=== PATIENT | female | born 1985 | race Caucasian/White ===

== ENCOUNTER 2024-02-08 10:26 | Emergency (ER) | payer OTHER, SELFPAY ==
[2024-02-08] VITALS (7 sets, daily range): BP systolic 100–137; BP diastolic 75–95; PULSE 103–127; BMI 21.7
[2024-02-08 11:09] LABS: % Basophils 0.8 % (0-2); % Eosinophils 3.9 % (0-6); % Immature Granulocytes 0.1 % (0-0.5); % Lymphocytes 21.8 % (20.5-51.1); % Monocytes 5.3 % (1.7-9.3); % Neutrophils 68.1 % (42.2-75.2); Absolute Basophils 0.1 10^3/uL (0-0.2); Absolute Eosinophils 0.3 10^3/uL (0-0.7); Absolute Lymphocytes 1.7 10^3/uL (1.2-3.4); Absolute Monocytes 0.4 10^3/uL (0.1-0.6); Absolute Neutrophils 5.2 10^3/uL (1.4-6.5); Hematocrit 41.4 % (37.0-47.0); Hemoglobin 13.9 g/dL (12.0-16.0); INR 1.07; Mean Corp Hgb Conc. 33.6 g/dL (33.0-37.0); Mean Corpuscular Hgb 31.2 pg (27.0-31.0); Mean Platelet Volume 9.2 fL (7.4-10.4); Nucleated Red Blood Cells % 0 %; PT 13.8 Sec (11.4-14.6); Platelet Count 467 10^3/uL (130-400); Red Blood Cell Count 4.45 10^6/uL (4.20-5.40); Red Cell Dist. Width 12.8 % (11.5-14.5); White Blood Cell Count 7.7 10^3/uL (4.8-10.8)
[2024-02-08 11:21] LABS: Blood Urea Nitrogen 8 mg/dl (7-17); Calcium 9.9 mg/dl (8.4-10.2); Carbon Dioxide 29 mmol/L (22-30); Chloride 104 mmol/L (98-107); Estimated Creatinine Clearance > 125 ml/min; Glucose 105 mg/dl (70-99); Sodium 139 mmol/L (135-145); eGFR > 60.00
--- NOTE | 2024-02-08 11:26 | ED.GENMED ---
History of Present Illness
General
Chief Complaint: Heart Rate Problem
Source: patient
Exam Limitations: none
Time Seen by Provider: 02/08/24 10:58
Travel History
Have you had any contact with someone who has COVID-19?: No
Do you have any symptoms of coronavirus? Fever > 100 degrees, chills, cough, shortness of breath, sore throat, loss of taste or smell, muscle aches, or headache?: No
History of Present Illness
History of Present Illness:
38-year-old female presents complaining of persistently elevated rapid heart rate. She has a remote history of SVT and was on beta-blockers for some time but stopped those about a couple years ago. She denies chest pain. She does note occasional
shortness of breath. Today she was standing up gaseous and feeling of gas and she believes she passed out and fell into her car. She is on Suboxone. No recent alcohol use. Denies recent IV drug abuse. She was seen at another hospital 2 days ago
and thought to have anxiety and given Xanax and was discharged.
Past History
Past History
ED Past Medical History: Arrthythmia (SVT s/p ablation) and Other (RSD)
ED Past Surgical History: None and Orthopedic
Social History
Tobacco: Smoker
Personal: Single
Living: with family
Employment: Employed
Phy Exam
Physical Exam
Physical Exam:
General: Well-appearing female no acute respiratory distress
HEENT: Normocephalic atraumatic
Heart: Tachycardic but regular
Lungs: Clear no wheeze
Extremities: No cyanosis or edema
Course
Orders/Labs/Results
Orders:
Orders
02/08/24 10:33
Electrocardiogram (*1) Urgent
Reason for Study: Tachycardia
EKG- Treatment ONCE
02/08/24 10:43
Basic Metabolic Panel Urgent
Complete Blood Count/With Diff Urgent
D-Dimer Urgent
Comment: ADD ON
PT/INR [Prothrombin Time] Urgent
Troponin I Urgent
02/08/24 11:18
Orthostatic VS- Treatment ONCE
0.9% Sodium Chloride 1000 ml [Nss] 1,000 ml IV BOLUS
02/08/24 11:33
Add On- LAB Urgent
Tests Added?: d-dimer
02/08/24 12:09
CR Chest - 2 Views Urgent
Comment:
Reason For Exam: sob
Abnormal Lab Results
02/08/24
10:43
MCH 31.2 H pg
(27.0-31.0)
Plt Count 467 H 10^3/uL
(130-400)
Creatinine 0.5 L mg/dL
(0.6-1.0)
Glucose 105 H mg/dl
(70-99)
02/08/24 10:43
02/08/24 10:43
Vital Signs
Initial and Last Documented VS:
Initial Vital Signs
Temp Pulse Resp BP Pulse Ox
98.5 F 137 18 137/79 99
02/08/24 10:29 02/08/24 10:29 02/08/24 10:29 02/08/24 10:29 02/08/24 10:29
Last Documented Vital Signs
Temp Pulse Resp BP Pulse Ox
98.5 F 99 7 100/86 100
02/08/24 10:29 02/08/24 12:45 02/08/24 12:45 02/08/24 12:35 02/08/24 12:45
MDM/Problems Addressed
Differential Diagnosis Includes:
Tachycardia shortness of breath. Consider dehydration versus electrolyte abnormality versus withdrawal versus arrhythmia
D-dimer pending. Orthostatics pending will check
Labs for anemia. Fluids ordered.
*Critical Care Note
Total Time (30-74mins, 75-104mins- exclusive of procedures): Not Applicable
Update Note
Update Note:
D-dimer and troponin undetectable. Patient given fluids and heart rate has improved now in the 90s and is sinus. Patient complained about rectal bleeding that she has been noticing intermittently upon my reexamination. Female people greeter was in the
room and rectal exam was performed shows no obvious bleeding hemorrhoid or fissure. Stool is brown and heme-negative. Hemoglobin is 13.9. Vital signs of normalized. Question possible dehydration versus arrhythmia. Recommend follow-up with
cardiology and GI. Stable for discharge
ED Attending Note
-
Portions of this chart may have been created with voice recognition software.� Occasional wrong word or��sound alike� substitutions may have occurred due to the inherent limitations of voice recognition software.
Discharge Plan
Departure
Patient Disposition: Home (Routine Discharge)
Date of Disposition: 02/08/24
Time of Disposition: 14:05
Patient with high blood pressure during this ER visit?: No
Discharge Problem:
Palpitations
Instructions: Palpitations (DC)
Prescriptions:
No Action
venlafaxine 75 MG capsule,extended release 24hr
75 mg PO DAILY
tizanidine 2 MG tablet
2 mg PO PRN PRN (Reason: muscle spasms)
alprazolam 1 MG tablet
1 mg PO TID
dextroamphetamine-amphetamine [Adderall XR] 15 MG capsule,extended release 24hr
15 mg PO TID
acebutolol 200 MG capsule
200 mg PO BID
Referrals:
Miladis Velazquez MD [Active] -
Cristóbal Olivas MD [Active] -
NONE,* [Family Provider] -
Activity Restrictions/Additional Instructions:
Stay hydrated. Consider using Prilosec 40 mg [id number]. Return for worsening symptoms otherwise follow-up with GI and cardiology
Interventions
Interventions:
*Risk Screen - Suicide Last Done: 02/08/24 10:31
*General Assessment Last Done: 02/08/24 10:31
*Neglect/Abuse Screening Last Done: 02/08/24 10:31
*ED COVID-19 Vaccine History Last Done: 02/08/24 10:41
ED- Cardiac Assessment Last Done: 02/08/24 10:41
ED- Pulmonary Assessment Last Done: 02/08/24 10:41
Discharge Date and Time
Print Language: TAJIK
[2024-02-08 11:29] LABS: Troponin I < 0.012 ng/ml
[2024-02-08] MEDS: NSS 1000 IV (11:36)
[2024-02-08 11:58] LABS: D-Dimer < 0.27 ug/mlFEU (0.00-0.50)
== END 2024-02-08 15:31 | disposition home or self-care (01) ==
LOC: EMR 10:26
PROVIDERS: EMERGENCY PHYSICIAN Emergency Medicine
DX: R00.2 Palpitations (principal); F17.200 Nicotine dependence, unspecified, uncomplicated
CPT/HCPCS: 99285; 96360; 71046; 80048; 84484; 85025; 85379; 85610; 93005

== ENCOUNTER 2024-02-11 23:45 | Inpatient (IN) | payer OTHER, SELFPAY ==
[2024-02-11] VITALS (14 sets, daily range): BP systolic 84–103; BP diastolic 46–72
[2024-02-11 16:56] LABS: % Basophils 0.3 % (0-2); % Eosinophils 0.1 % (0-6); % Immature Granulocytes 0.6 % (0-0.5); % Lymphocytes 4.4 % (20.5-51.1); % Monocytes 3.9 % (1.7-9.3); % Neutrophils 90.7 % (42.2-75.2); Absolute Basophils 0.1 10^3/uL (0-0.2); Absolute Immature Granulocytes 0.1 10^3/uL (0-0.05); Absolute Lymphocytes 0.8 10^3/uL (1.2-3.4); Absolute Monocytes 0.7 10^3/uL (0.1-0.6); Absolute Neutrophils 16.3 10^3/uL (1.4-6.5); Hematocrit 41.3 % (37.0-47.0); Hemoglobin 14.1 g/dL (12.0-16.0); Mean Corp Hgb Conc. 34.1 g/dL (33.0-37.0); Mean Corpuscular Hgb 31.5 pg (27.0-31.0); Mean Corpuscular Volume 92.4 fL (81.0-99.0); Mean Platelet Volume 9.2 fL (7.4-10.4); Nucleated Red Blood Cells % 0 %; Platelet Count 468 10^3/uL (130-400); Red Blood Cell Count 4.47 10^6/uL (4.20-5.40)
[2024-02-11] MEDS: ZOFRAN 4 MG IV (17:09)
[2024-02-11 17:11] LABS: Amphetamines Positive (Negative)
[2024-02-11 17:12] LABS: Barbiturates Negative (Negative); Benzodiazepines Positive (Negative); Buprenorphine Positive (Negative); Cocaine Negative (Negative); Marijuana Positive (Negative); Methadone Negative (Negative); Methamphetamines Negative (Negative); Opiates Negative (Negative); Phencyclidine Negative (Negative); Tricyclic Antidepressants Negative (Negative)
[2024-02-11 17:14] LABS: ALT (SGPT) 18 U/L (0-35); AST (SGOT) 74 U/L (14-36); Albumin 4.5 g/dl (3.5-5.0); Alkaline Phosphatase 72 U/L (38-126); Blood Urea Nitrogen 15 mg/dl (7-17); Calcium 10.4 mg/dl (8.4-10.2); Carbon Dioxide 27 mmol/L (22-30); Chloride 100 mmol/L (98-107); Glucose 121 mg/dl (70-99); Potassium 4.2 mmol/L (3.5-5.1); Sodium 138 mmol/L (135-145); Total Bilirubin 0.5 mg/dl (0.2-1.3); Total Protein 7.4 g/dl (6.3-8.2); eGFR > 60.00
[2024-02-11 17:17] LABS: HCG, Serum Qualitative Screen Negative
[2024-02-11 17:36] LABS: Fentanyl, Urine Positive (Negative)
--- NOTE | 2024-02-11 17:41 | ED.GENMED ---
Addendum entered and electronically signed by Reid Rivas, 02/11/24 21:20:
Patient seen and evaluated by me. Patient with suicide attempt fentanyl and benzodiazepine overdose. Continued mild hypotension. Patient getting normal saline. Will admit for further monitoring and evaluation.
Original Note:
History of Present Illness
General
Chief Complaint: Overdose Intentional
Source: patient
Time Seen by Provider: 02/11/24 16:06
Travel History
Have you had any contact with someone who has COVID-19?: No
Do you have any symptoms of coronavirus? Fever > 100 degrees, chills, cough, shortness of breath, sore throat, loss of taste or smell, muscle aches, or headache?: No
History of Present Illness
History of Present Illness:
38-year-old female with past medical history of CRPS, ADHD, anxiety/depression presenting to the emergency department with family after patient was reportedly missing for around 24 hours, found by police in the parking lot a [employer]'s after patient
had reportedly expressed suicidal ideation and had taken 4 bags of fentanyl and a total of 5 mg of Xanax at some point between 10 AM and arrival to the ER. Family brought patient to the emergency. Mother states that patient had expressed suicidal
ideations over the last couple of days stating that if it were not for the patient's children or her mother patient would have already killed herself by now. Patient endorses feeling brain fog and slow to respond to questions and feels as if she is
just not herself. Family notes that patient seems to have a hard time recollecting any timeline from yesterday until today. Patient was recently in the ER here and in [place] for episodes of SVT over the last week as well.
Past History
Past History
ED Past Medical History: Arrthythmia (SVT s/p ablation), Psychiatric and Other (RSD)
ED Past Surgical History: None and Orthopedic
Social History
Tobacco: Smoker
Alcohol: None
Drug: Narcotics
Personal: Single
Living: with family
Employment: Employed
Review of Systems
Review of Systems
All Other Systems: ROS reviewed and negative except as documented in HPI and ROS
Phy Exam
Physical Exam
Physical Exam:
GENERAL: Alert , in no apparent distress, slow to respond to questions, appears intoxicated
EYE: conjunctiva clear, pupils 2 mm bilateral
NECK: Supple
ENT: o/p clr, mmm.
CARDIAC: Regular rate and rhythm
LUNGS: Clear breath sounds bilaterally, no acute respiratory distress, no wheezes/rales/rhonchi
NEUROLOGICAL: Alert and oriented
SKIN: Warm and dry, skin intact.
MUSCULOSKELETAL: well perfused.
PSYCH: Normal and appropriate interaction.
Scores
Heart Failure Risk
Heart Failure Risk Score: Not Applicable
Heart Score for Chest Pain Patients
STEMI patient?: Not applicable
Withdrawal Assessment of Alcohol
Withdrawal Assessment Completed?: Not applicable
Course
Orders/Labs/Results
Orders:
Orders
02/11/24 15:43
Electrocardiogram (*1) Urgent
Reason for Study: Other
Other Reason for Exam: fentanyl ingestion
EKG- Treatment ONCE
Test Result ONCE
02/11/24 15:44
Crisis Consult Urgent
Reason for Consult: positive suicide attempt/ideation
02/11/24 16:30
Ondansetron Injectable [Zofran] 4 mg .ROUTE .[facility]
02/11/24 16:38
CT Head W/o Iv Contrast Urgent
Comment:
Reason For Exam: AMS, substance abuse, slow speech/unsteady gait
02/11/24 16:44
Acetaminophen Urgent
Alcohol Urgent
CMP [Comprehensive Metabolic Panel] Urgent
Complete Blood Count/With Diff Urgent
Fentanyl, Urine Urgent
HCG, Serum Qualitative Screen Urgent
Salicylate Urgent
Urine Drug Abuse Screen Urgent
Date Specimen was Collected: 02/11/24
Time Specimen was Collected: 15:44
02/11/24 17:09
Ondansetron Injectable [Zofran] 4 mg IV NOW STA
02/11/24 19:23
0.9% Sodium Chloride 1000 ml [Nss] 1,000 ml IV BOLUS
Abnormal Lab Results
02/11/24
16:44
WBC 18.0 H 10^3/uL
(4.8-10.8)
MCH 31.5 H pg
(27.0-31.0)
Plt Count 468 H 10^3/uL
(130-400)
Abs Immat Gran (auto) 0.1 H 10^3/uL
(0-0.05)
Absolute Neuts (auto) 16.3 H 10^3/uL
(1.4-6.5)
Absolute Lymphs (auto) 0.8 L 10^3/uL
(1.2-3.4)
Absolute Monos (auto) 0.7 H 10^3/uL
(0.1-0.6)
Immature Gran % 0.6 H %
(0-0.5)
Neutrophils % 90.7 H %
(42.2-75.2)
Lymphocytes % 4.4 L %
(20.5-51.1)
Glucose 121 H mg/dl
(70-99)
Calcium 10.4 H mg/dl
(8.4-10.2)
AST 74 H U/L
(14-36)
Salicylates < 1.0 L mg/dl
(2.0-20.0)
Ur Buprenorphine Positive H
(Negative)
Urine Fentanyl Screen Positive H
(Negative)
Acetaminophen < 10 L ug/ml
(10-30)
Ur Amphetamines Screen Positive H
(Negative)
U Benzodiazepines Scrn Positive H
(Negative)
U Marijuana (THC) Screen Positive H
(Negative)
02/11/24 16:44
02/11/24 16:44
Vital Signs
Initial and Last Documented VS:
Initial Vital Signs
Temp Pulse Resp BP Pulse Ox
98.7 F 74 16 99/64 100
02/11/24 15:25 02/11/24 15:25 02/11/24 15:25 02/11/24 15:25 02/11/24 15:25
Last Documented Vital Signs
Temp Pulse Resp BP Pulse Ox
98.7 F 80 15 95/57 97
02/11/24 15:25 02/11/24 19:15 02/11/24 19:15 02/11/24 19:14 02/11/24 19:15
Final Tester consulted with Physician
Final Tester consulted with physician?: Yes
Name of Physician Consulted: Rob
MDM/Problems Addressed
Differential Diagnosis Includes:
Substance abuse, decreased levels of alertness secondary to opioid and benzodiazepine abuse, rhabdomyolysis, electrolyte disturbance, less concern for infectious etiology
MDM/Problems Addressed:
38-year-old female presenting to the emergency department for evaluation of suicidal ideation with plan and intent. Patient found by police in [employer]'s parking lot after reportedly ingesting fentanyl and Xanax. Family believes the ingestion
occurred at some point yesterday. Patient states she did not take anything today. She states only other medication that she potentially took was Suboxone but states she does not believe to have taken this. Patient does appear intoxicated
presently but is awake alert and oriented x 3. She has no physical complaints other than feeling brain fog and having a difficult time concentrating. Patient did have 1 episode of nonbloody nonbilious emesis during our conversation and she was
treated with 4 mg of Zofran. Crisis to evaluate with anticipation that patient will be disposition to inpatient psych.
Chronic conditions affecting care: Psychiatric illness
Acute Exacerbation and/or Progression of Chronic Illness: Psychiatric illness
*Radiology
Radiology exam reviewed: radiology read reviewed
*Pulse Oximetry
Patient hypoxic: no
*EKG
Interpreted by ED Provider?: Yes
Comparison EKG: no changes
Heart Rate: 67
Rate: normal
Rhythm: sinus
[place]: normal axis
Ischemia: no ischemia
*Oim Consultant Interpretation
Rate: normal
Rhythm: sinus
*Critical Care Note
Total Time (30-74mins, 75-104mins- exclusive of procedures): Not Applicable
Patient Management
Escalation/DeEscalation of care consider admission/obs:
Patient seen by crisis. She will ultimately be placed in inpatient psych facility. Continuing to monitor in the ER. CT without any acute findings and remaining toxicology work up is unremarkable
ED Attending Note
-
Portions of this chart may have been created with voice recognition software.� Occasional wrong word or��sound alike� substitutions may have occurred due to the inherent limitations of voice recognition software.
Discharge Plan
Departure
Patient Disposition: Psych Facility
Date of Disposition: 02/11/24
Time of Disposition: 17:41
Discharge Problem:
Suicidal ideation, Substance abuse
Prescriptions:
No Action
multivitamin Tablet
1 tab PO DAILY
cyanocobalamin (vitamin B-12) [Vitamin B-12] 1,000 mcg Tablet
1,000 mcg PO DAILY
buprenorphine-naloxone 8-2 mg film
1 film sublingual DAILY
Patient Comments:
02/11/2024: last filled 02/09/24, 60 film for 30 days from [id number]
Referrals:
NONE,* [Family Provider] -
Interventions
Interventions:
*Risk Screen - Suicide Last Done: 02/11/24 15:25
*General Assessment Last Done: 02/11/24 18:57
*Neglect/Abuse Screening Last Done: 02/11/24 19:00
*ED COVID-19 Vaccine History Last Done: 02/11/24 15:25
ED-Psychological Assessment Last Done: 02/11/24 16:12
Discharge Date and Time
Print Language: OCCITAN
[2024-02-11 18:04] LABS: Acetaminophen < 10 ug/ml (10-30); Salicylate < 1.0 mg/dl (2.0-20.0)
[2024-02-11 18:06] LABS: Alcohol None Detected
[2024-02-11] MEDS: NSS 1000 IV ×2 (19:30→21:35)
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
[2024-02-12] VITALS (9 sets, daily range): BP systolic 91–118; BP diastolic 55–79; PULSE 77–88; BMI 21.3; BMI 21.4
--- NOTE | 2024-02-12 00:40 | PTCARENOTE ---
Pt admitted to room 2127 from ED on 1:1 observation, aaox3. COWS assessment initiated. Pt oriented to room and call light.
[2024-02-12] MEDS: NSS 1000 IV (01:25)
[2024-02-12] MEDS: TYLENOL 650 MG PO ×2 (01:36→20:43)
[2024-02-12 06:31] LABS: Hematocrit 31.6 % (37.0-47.0); Hemoglobin 10.4 g/dL (12.0-16.0); Mean Corp Hgb Conc. 32.9 g/dL (33.0-37.0); Mean Corpuscular Hgb 31.2 pg (27.0-31.0); Mean Corpuscular Volume 94.9 fL (81.0-99.0); Mean Platelet Volume 9.7 fL (7.4-10.4); Platelet Count 343 10^3/uL (130-400); Red Blood Cell Count 3.33 10^6/uL (4.20-5.40); Red Cell Dist. Width 12.9 % (11.5-14.5); White Blood Cell Count 9.2 10^3/uL (4.8-10.8)
[2024-02-12 07:19] LABS: Blood Urea Nitrogen 7 mg/dl (7-17); Calcium 8.4 mg/dl (8.4-10.2); Carbon Dioxide 28 mmol/L (22-30); Chloride 105 mmol/L (98-107); Estimated Creatinine Clearance > 125 ml/min; Glucose 97 mg/dl (70-99); Potassium 3.8 mmol/L (3.5-5.1); Sodium 136 mmol/L (135-145); eGFR > 60.00
[2024-02-12 07:36] LABS: Creatine Phosphokinase 2329 U/L (30-135)
[2024-02-12] MEDS: NSS IV (09:14)
--- NOTE | 2024-02-12 11:08 | CM ---
Addendum entered by Russel Erazo 02/12/24 15:31:
Pharmacy is [facility] in [place]. She does not have a PCP at this time. The last PCP was at [facility].
Original Note:
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 Psychiatry has evaluated patient and feels she would benefit from inpatient psychiatric admission
or [facility] and substance abuse inpatient treatment. Possibly [facility]. Patient is considering options. Discharge Plan of Care TBD.
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
--- NOTE | 2024-02-12 12:55 | PTCARENOTE ---
Psych came and evaluated this pt, pt calm at this time, D/C'd 1:1 observation. No new orders at this time.
--- NOTE | 2024-02-12 13:45 | PTCARENOTE ---
This RN spoke with the pt who is looking to 'take a piece of her medication to microdose' because she is afraid of going into withdrawal. MD has made pt aware that we do not do that here, offered lower dose of medication, pt still hesitant and want
to think on it, may try to leave AMA to microdose at home per pt. and psych made aware, no new orders at this time.
--- NOTE | 2024-02-12 13:50 | W.PN.HOSP.TC ---
Today's Communication/Plan
-
see note
Assessment / Plan
Assessment / Plan
Intentional Overdose
Suicidal Ideation
Major Depression
- Admit for further evaluation and treatment.
- Overdose took place at 9AM on 02/10/24.
- Stop further IVF
- Monitor on telemetry overnight.
- Psychiatry evaluated and patient will require an inpatient admission
- 1:1 removed by psych.
Chronic BZD Dependence
- Patient notes that she has been on chronic Xanax x many years.
- PDMP queried and most recent Rx was from 04/2023 - though it did seem to be fairly regular prior to that.
- Low dose alprazolam PRN for now and follow for any evidence of withdrawal, etc.
Chronic Opioid Use Disorder
Complex Regional Pain Syndrome
- Patient apparently takes Suboxone 16mg/d. Patient hesitant about taking buprenorphine 8 mg daily dose ordered in hospital. Concerned about precipitating opioid withdrawal.
- Repeated discussion although patient adamant about not taking therapy.
Leukocytosis
- Unclear etiology. ? Reactive due to overdose, etc.
- Follow for any fevers, focal symptoms, etc.
- Follow for improvement.
DVT Prophylaxis: SCDs
Code Status: Full
RN informed that patient may leave AMA and want to try microdosing buprenorphine at home. Per psychiatry patient is not allowed to leave AMA and will need to be 302ed if intent to do so
Anticipated Discharge: 24 - 48 hours
Subjective/Interval History
-
Date of Service: February 12, 2024
Patient anxious about being provided Subutex concern about withdrawal
Complaining of some headache
No nausea vomiting/chest pain
Objective Data
-
Labs:
Laboratory Results
02/12/24
05:54
WBC 9.2
Hgb 10.4 L D
Hct 31.6 L
Plt Count 343 D
Sodium 136
Potassium 3.8
Chloride 105
Carbon Dioxide 28
BUN 7
Creatinine 0.5 L
Glucose 97
Calcium 8.4 D
Vital Signs:
Vital Signs
Temp Pulse Resp BP Pulse Ox
98.1 F 78 14 105/64 98
02/12/24 11:05 02/12/24 11:05 02/12/24 11:05 02/12/24 11:05 02/12/24 11:42
I&O
02/11/24 02/12/24 02/13/24
06:59 06:59 06:59
Intake Total 870 / 870
Balance 870 / 870
Review of Systems
-
Respiratory: Reports No Symptoms
Cardiac: Reports No Symptoms
Abdomen/GI: Reports No Symptoms
Physical Exam
-
HEENT: Negative Oxygen
Respiratory: Clear to Auscultation
Cardiac: Regular Rhythm and S1/S2; Negative Murmur or Rub
GI: Soft, Nontender, Nondistended and Normal Bowel Sounds
Musculoskeletal: No Edema
Neuro: Awake, Alert, Oriented, No Motor Deficits and Nonfocal/Grossly Intact
Psych: Calm
[2024-02-13 03:44] VITALS: BP 117/72
[2024-02-13] MEDS: XANAX 0.25 MG PO (04:01)
[2024-02-13 06:11] LABS: Hematocrit 32.5 % (37.0-47.0); Hemoglobin 11.2 g/dL (12.0-16.0); Mean Corp Hgb Conc. 34.5 g/dL (33.0-37.0); Mean Corpuscular Hgb 31.5 pg (27.0-31.0); Mean Corpuscular Volume 91.5 fL (81.0-99.0); Mean Platelet Volume 9.8 fL (7.4-10.4); Platelet Count 376 10^3/uL (130-400); Red Blood Cell Count 3.55 10^6/uL (4.20-5.40); Red Cell Dist. Width 12.8 % (11.5-14.5); White Blood Cell Count 6.7 10^3/uL (4.8-10.8)
[2024-02-13 06:36] LABS: ALT (SGPT) 16 U/L (0-35); AST (SGOT) 40 U/L (14-36); Albumin 2.8 g/dl (3.5-5.0); Alkaline Phosphatase 50 U/L (38-126); Blood Urea Nitrogen 4 mg/dl (7-17); Calcium 8.8 mg/dl (8.4-10.2); Carbon Dioxide 27 mmol/L (22-30); Chloride 107 mmol/L (98-107); Estimated Creatinine Clearance > 125 ml/min; Glucose 84 mg/dl (70-99); Potassium 3.8 mmol/L (3.5-5.1); Sodium 139 mmol/L (135-145); Total Bilirubin 0.3 mg/dl (0.2-1.3); Total Protein 5.2 g/dl (6.3-8.2); eGFR > 60.00
[2024-02-13 07:10] VITALS: BP 108/70
--- NOTE | 2024-02-13 09:05 | W.PN.HOSP.TC ---
Today's Communication/Plan
-
laxatives ordered
willing to take subutex 8mg/d
await psych f/u today
Assessment / Plan
Assessment / Plan
Intentional Overdose
Suicidal Ideation
Major Depression
- Overdose took place at 9AM on 02/10/24.
- Stop further IVF
- 1:1 removed by psych.
- Psych recommendation for inpatient psych admission
Chronic BZD Dependence
- Patient notes that she has been on chronic Xanax x many years.
- PDMP queried and most recent Rx was from 04/2023 - though it did seem to be fairly regular prior to that.
- Low dose alprazolam PRN for now and follow for any evidence of withdrawal, etc.
Chronic Opioid Use Disorder
Complex Regional Pain Syndrome
- Patient apparently takes Suboxone 16mg/d.
- Patient was hesitant about taking buprenorphine 8 mg daily dose ordered in hospital. Concerned about precipitating opioid withdrawal.
- Today patient in agreement and willing to start subutex 8mg/d dose.
Leukocytosis - resolved
- Unclear etiology. ? Reactive due to overdose, etc.
- Follow for any fevers, focal symptoms, etc.
- Follow for improvement.
Scalp swelling
headache
- unsure how patient got it
- no ecchymosis on exam and not discernable on exam
- monitor
Constipation
- laxatives ordered
DVT Prophylaxis: SCDs
Code Status: Full
Anticipated Discharge: Within 24 hours
Subjective/Interval History
-
Date of Service: February 13, 2024
feeling well overnight
some headache that improved with tylenol
no nausea/vomiting
feels constipated
Objective Data
-
Labs:
Laboratory Results
02/13/24
05:18
WBC 6.7
Hgb 11.2 L
Hct 32.5 L
Plt Count 376
Sodium 139
Potassium 3.8
Chloride 107
Carbon Dioxide 27
BUN 4 L
Creatinine 0.5 L
Glucose 84
Calcium 8.8
Total Bilirubin 0.3
AST 40 H
ALT 16
Alkaline Phosphatase 50
Vital Signs:
Vital Signs
Temp Pulse Resp BP Pulse Ox
97.9 F 86 16 108/70 95
02/13/24 07:10 02/13/24 07:10 02/13/24 07:10 02/13/24 07:10 02/13/24 07:10
I&O
02/12/24 02/13/24 02/14/24
06:59 06:59 06:59
Intake Total 870 / 870
Balance 870 / 870
Review of Systems
-
Respiratory: Reports No Symptoms
Cardiac: Reports No Symptoms
Abdomen/GI: Reports Constipated
Physical Exam
-
General: No Apparent Distress; Negative Respiratory Distress
HEENT: Negative Oxygen
Neuro: Awake, Alert, Oriented and No Motor Deficits
Psych: Calm
[2024-02-13] MEDS: MIRALAX 17 GRAMS PO (09:39)
[2024-02-13] MEDS: DULCOLAX 10 MG PO (09:39)
[2024-02-13] MEDS: SUBUTEX 8 MG SL (09:40)
--- NOTE | 2024-02-13 10:56 | W.PN.UPDATE ---
Update Note
Progress Note Update
Patient is quite friendly and cooperative. She still reports she is quite depressed particularly if opiates did not cause permanent damage on ocean transportation intermediary basis to her brain. She is also unhappy with her job but finds it difficult to find another line
of work and reports general anhedonia. She denies active suicidal thoughts but reports passive ones.
Discussed treatment of depression; she is interested in trying Wellbutrin again as it helped in the past; I feel psychotherapy is also essential.
Will try Wellbutrin XL 150 od.
Supportive intervention given.
[2024-02-13 11:05] VITALS: BP 111/72; BP 119/79; BP 119/81; PULSE 80; PULSE 83; PULSE 90
[2024-02-13] MEDS: WELLBUTRIN XL (24 hour extended release) 150 MG PO (11:30)
[2024-02-13 15:10] VITALS: BP 111/75
[2024-02-13 19:27] VITALS: BP 112/68
[2024-02-13] MEDS: MELATONIN 5 MG PO (21:11)
[2024-02-13 23:22] VITALS: BP 105/63
[2024-02-14 03:22] VITALS: BP 128/68
[2024-02-14 06:20] LABS: Hematocrit 34.5 % (37.0-47.0); Hemoglobin 12.3 g/dL (12.0-16.0); Mean Corp Hgb Conc. 35.7 g/dL (33.0-37.0); Mean Corpuscular Hgb 31.7 pg (27.0-31.0); Mean Corpuscular Volume 88.9 fL (81.0-99.0); Mean Platelet Volume 9.5 fL (7.4-10.4); Platelet Count 437 10^3/uL (130-400); Red Blood Cell Count 3.88 10^6/uL (4.20-5.40); Red Cell Dist. Width 12.8 % (11.5-14.5); White Blood Cell Count 7.3 10^3/uL (4.8-10.8)
[2024-02-14 06:41] LABS: ALT (SGPT) 14 U/L (0-35); AST (SGOT) 34 U/L (14-36); Albumin 3.1 g/dl (3.5-5.0); Alkaline Phosphatase 59 U/L (38-126); Blood Urea Nitrogen 7 mg/dl (7-17); Calcium 9.3 mg/dl (8.4-10.2); Carbon Dioxide 28 mmol/L (22-30); Chloride 106 mmol/L (98-107); Estimated Creatinine Clearance > 125 ml/min; Glucose 89 mg/dl (70-99); Potassium 3.9 mmol/L (3.5-5.1); Sodium 139 mmol/L (135-145); Total Bilirubin 0.4 mg/dl (0.2-1.3); Total Protein 5.6 g/dl (6.3-8.2); eGFR > 60.00
[2024-02-14 07:05] VITALS: BP 111/75
[2024-02-14] MEDS: SUBUTEX 8 MG SL (08:40)
[2024-02-14] MEDS: XANAX 0.25 MG PO (08:41)
[2024-02-14] MEDS: MIRALAX PO (08:50)
--- NOTE | 2024-02-14 08:59 | W.PN.HOSP.TC ---
Today's Communication/Plan
-
awaiting inpatient psych placement
continue current medication
Assessment / Plan
Assessment / Plan
Intentional Overdose
Suicidal Ideation
Major Depression
- Overdose took place at 9AM on 02/10/24.
- Stop further IVF
- 1:1 removed by psych.
- Psych recommendation for inpatient psych admission
Chronic benzodiazepine Dependence
- Patient notes that she has been on chronic Xanax x many years.
- PDMP queried and most recent Rx was from 04/2023 - though it did seem to be fairly regular prior to that.
- Low dose alprazolam PRN for now and follow for any evidence of withdrawal, etc.
Chronic Opioid Use Disorder
Complex Regional Pain Syndrome
- Patient apparently takes Suboxone 16mg/d.
- Patient was hesitant about taking buprenorphine 8 mg daily dose ordered in hospital. Concerned about precipitating opioid withdrawal.
- yesterday patient in agreement and willing to start Subutex 8mg/d dose. no issues
Leukocytosis - resolved
- Unclear etiology. ? Reactive due to overdose, etc.
- Follow for any fevers, focal symptoms, etc.
- Follow for improvement.
Scalp swelling
headache
- unsure how patient got it
- no ecchymosis on exam and not discernable on exam
- monitor
Constipation
- laxatives ordered
DVT Prophylaxis: SCDs
Code Status: Full
Anticipated Discharge: Within 24 hours
Subjective/Interval History
-
Date of Service: February 14, 2024
feeling well
some sleep disturbance
Objective Data
-
Labs:
Laboratory Results
02/14/24
05:47
WBC 7.3
Hgb 12.3
Hct 34.5 L
Plt Count 437 H
Sodium 139
Potassium 3.9
Chloride 106
Carbon Dioxide 28
BUN 7
Creatinine 0.6
Glucose 89
Calcium 9.3
Total Bilirubin 0.4
AST 34
ALT 14
Alkaline Phosphatase 59
Vital Signs:
Vital Signs
Temp Pulse Resp BP Pulse Ox
98.0 F 83 16 111/75 96
02/14/24 07:05 02/14/24 07:05 02/14/24 07:05 02/14/24 07:05 02/14/24 07:05
I&O
02/13/24 02/14/24 02/15/24
06:59 06:59 06:59
Intake Total 960 / 960
Balance 960 / 960
Review of Systems
-
Respiratory: Reports No Symptoms
Cardiac: Reports No Symptoms
Abdomen/GI: Reports No Symptoms
Physical Exam
-
General: No Apparent Distress; Negative Respiratory Distress
HEENT: Negative Oxygen
Neuro: Awake, Alert, Oriented and No Motor Deficits
Psych: Calm
[2024-02-14 11:25] VITALS: BP 110/78; BP 113/79; BP 117/79; PULSE 110; PULSE 84; PULSE 92
[2024-02-14] MEDS: WELLBUTRIN XL (24 hour extended release) 150 MG PO (14:26)
[2024-02-14] MEDS: NICORETTE 2 MG PO (14:40)
[2024-02-14 15:10] VITALS: BP 106/71
[2024-02-14 19:23] VITALS: BP 109/69
[2024-02-14] MEDS: DESYREL 50 MG PO (22:18)
[2024-02-14] MEDS: MELATONIN 5 MG PO (22:18)
[2024-02-14 23:10] VITALS: BP 112/72
[2024-02-15] VITALS (7 sets, daily range): BP systolic 102–141; BP diastolic 60–81; PULSE 84–118
[2024-02-15 06:20] LABS: Hematocrit 34.9 % (37.0-47.0); Hemoglobin 12.1 g/dL (12.0-16.0); Mean Corp Hgb Conc. 34.7 g/dL (33.0-37.0); Mean Corpuscular Hgb 31.4 pg (27.0-31.0); Mean Corpuscular Volume 90.6 fL (81.0-99.0); Mean Platelet Volume 9.4 fL (7.4-10.4); Platelet Count 387 10^3/uL (130-400); Red Blood Cell Count 3.85 10^6/uL (4.20-5.40); Red Cell Dist. Width 12.9 % (11.5-14.5); White Blood Cell Count 6.7 10^3/uL (4.8-10.8)
[2024-02-15 06:56] LABS: ALT (SGPT) 12 U/L (0-35); AST (SGOT) 27 U/L (14-36); Albumin 3.1 g/dl (3.5-5.0); Alkaline Phosphatase 53 U/L (38-126); Blood Urea Nitrogen 6 mg/dl (7-17); Calcium 9.5 mg/dl (8.4-10.2); Carbon Dioxide 28 mmol/L (22-30); Chloride 105 mmol/L (98-107); Estimated Creatinine Clearance > 125 ml/min; Glucose 86 mg/dl (70-99); Potassium 4.3 mmol/L (3.5-5.1); Sodium 139 mmol/L (135-145); Total Bilirubin 0.3 mg/dl (0.2-1.3); Total Protein 5.6 g/dl (6.3-8.2); eGFR > 60.00
--- NOTE | 2024-02-15 08:11 | W.PN.HOSP.TC ---
Today's Communication/Plan
-
Inpatient psychiatry placement pending
Assessment / Plan
Assessment / Plan
Physical Exam
General: No Apparent Distress; Negative Respiratory Distress
HEENT: Negative Oxygen
Cardio: S1 and S2. RRR.
Pulm: CTAB
Neuro: Awake, Alert, Oriented and No Motor Deficits
Psych: Calm

Intentional Overdose on Fentanyl
Suicidal Ideation
Major Depression
- Overdose took place at 9AM on 02/10/24.
- Further IV fluids was previously stopped.
- 1:1 removed by psych.
- Psych recommendation for inpatient psych admission
- I spoke with both patient's mother and patient inside patient's room, on February 15, 2024, they strongly requested Brain MRI inpatient/outpatient given family history of strokes and patient has been confused at times
- MRI Brain showed no acute abnormalities, except some chronic sinusitis
Chronic benzodiazepine Dependence
- Patient notes that she has been on chronic Xanax x many years.
- PDMP was queried and most recent Rx was from 04/2023 - though it did seem to be fairly regular prior to that.
- Low dose alprazolam PRN for now and follow for any evidence of withdrawal, etc.
Chronic Opioid Use Disorder
Complex Regional Pain Syndrome
- Patient apparently takes Suboxone 16mg/d.
- Patient was hesitant about taking buprenorphine 8 mg daily dose ordered in hospital. Concerned about precipitating opioid withdrawal.
- Patient in agreement and willing to start Subutex 8mg/d dose. no issues
Leukocytosis - resolved
- Unclear etiology. ? Reactive due to overdose, etc.
- Follow for any fevers, focal symptoms, etc.
- Follow for improvement.
Scalp swelling
headache
- unsure how patient got it
- no ecchymosis on exam and not discernable on exam
- monitor
Constipation
- laxatives ordered
DVT Prophylaxis: SCDs
Code Status: Full
Anticipated Discharge: > 48 hours
Subjective/Interval History
-
Date of Service: February 15, 2024
Patient was seen and examined. She reported feeling okay, denied any new symptoms or complaints.
Objective Data
-
Labs:
Laboratory Results
02/15/24
05:42
WBC 6.7
Hgb 12.1
Hct 34.9 L
Plt Count 387
Sodium 139
Potassium 4.3
Chloride 105
Carbon Dioxide 28
BUN 6 L
Creatinine 0.6
Glucose 86
Calcium 9.5
Total Bilirubin 0.3
AST 27
ALT 12
Alkaline Phosphatase 53
Vital Signs:
Vital Signs
Temp Pulse Resp BP Pulse Ox
98.1 F 77 16 102/60 97
02/15/24 03:21 02/15/24 03:21 02/15/24 03:21 02/15/24 03:21 02/15/24 03:21
I&O
02/14/24 02/15/24 02/16/24
06:59 06:59 06:59
Intake Total 960 / 960 500 / 500
Balance 960 / 960 500 / 500
[2024-02-15] MEDS: WELLBUTRIN XL (24 hour extended release) 150 MG PO (08:38)
[2024-02-15] MEDS: SUBUTEX 8 MG SL (08:38)
[2024-02-15] MEDS: MIRALAX 17 GRAMS PO (08:39)
--- NOTE | 2024-02-15 14:21 | CM ---
Addendum entered by Maya Fisher 02/15/24 15:24:
Plan for inpatient psych/201
201 placed on chart for completion by psych
Update to pt- explained bed search process and role of [employer] in prior auth
Original Note:
CM called protective service referral to [place] Child Abuse Hotline due to positive tox screen [phone] (p)
Responder confirmed positive tox screen meets mandated reporting criteria in [place]
Case referred to local [facility] office [phone]
No written report required for [place] reporting-local office to likely respond within 24 hours
CM met with pt, her mother and step father bedside
Pt acknowledged understanding and was calm and cooperative
Motivated for treatment and help
She will alert her children's father of childine report
Pt's mother remains as a great support to pt and her children
TT/Dr Hurtado requesting update on recommendations regarding tx plan/dispo
Awaiting recommendations for psych tx
Discharge Disposition- anticipate inpatient psych/201
--- NOTE | 2024-02-15 16:28 | W.PN.UPDATE ---
Update Note
Progress Note Update
Pt seen with mother present, who expressed concern about pt's recent depression. Pt preoccupied with questions about inpatient psych tx, appears anxious about it. Discussed voluntary inpatient treatment, expectations. Pt continues to have
dysphoric/sad affect, concerned about how previous Rx narcotic dependence may have affected her, feels she lost some brain function. Pt on Buprenorphine, decreased from 16 mg per day to current 8 mg. No signs of acute distress. Pt alert, calm,
cooperative, with good eye contact, appropriate affect. No signs of psychosis. Pt started re-trial of Wellbutrin XL 150 mg, states she already feels some benefit. Pt took Trazodone last night, which helped her sleep. Denies side effects from
psychotropic meds. Pt talked about lack of enjoyment/interest, states foods aren't as appealing.
Imp: Major Depressive d/o; intentional OD
Rec: inpatient voluntary psych placement
will continue current psychotropic medications
[2024-02-15] MEDS: MELATONIN 5 MG PO (21:07)
[2024-02-15] MEDS: DESYREL 50 MG PO (22:34)
[2024-02-16] VITALS (8 sets, daily range): BP systolic 98–122; BP diastolic 57–79; PULSE 80–118
[2024-02-16] MEDS: WELLBUTRIN XL (24 hour extended release) 150 MG PO (07:58)
[2024-02-16] MEDS: SUBUTEX 8 MG SL (07:58)
[2024-02-16] MEDS: MIRALAX 17 GRAMS PO (07:58)
--- NOTE | 2024-02-16 08:28 | PN.CDI ---
CDI
- -
CDI:
Physician Documentation Request
Admit Date: 02/11/24 23:45
Dear Doctor John,
Please review the following and provide your response in the progress notes.
Clinical Indicators:
- 02/10 ER Physician 'patient was reportedly missing for around 24 hours'
- 02/10 H&P indicates patient 'fell asleep / lost consciousness' for approximately 24 hours
- 3L IVF given
Laboratory Tests
02/12/24
05:54
Creatine Kinase 2329 H
Please clarify the diagnosis with the above findings regarding the elevated creatine kinase:
Rhabdomyolysis
Fentanyl overdose
Multifactorial due to a combination of fentanyl overdose and rhabdomyolysis
Other
Use of terms such as suspected, likely, concern for, or probable (associated with a specific diagnosis that is being evaluated, monitored, or treated as if it exists) are acceptable and can be coded in the inpatient setting, when documented at the
time of discharge.
Thank you,
Maryan Amador RN
CDI Specialist
Please use your independent medical judgment in providing your response.
--- NOTE | 2024-02-16 14:07 | W.PN.UPDATE ---
Update Note
Progress Note Update
Pt seen, continues to report depression symptoms: negative outlook, worry about the future, anhedonia, poor appetite (starting to improve), difficulty concentrating, passive wish to to get away from pain/losses/stress. Pt denies side effects
on re-trial of Wellbutrin XL. Pt agreeable to go to an inpatient psychiatric facility. Pt c/o protracted opioid withdrawal symptoms- insomnia/anxiety- after decrease in Suboxone- states she was recently on 16 mg per day.
Imp: Major Depressive d/o; intentional OD
Rec: inpatient voluntary psych placement
will continue current psychotropic medication. Could increase Suboxone to 12 mg pre day with plan to gradually taper down- discussed with Dr Lopez
--- NOTE | 2024-02-16 14:30 | CM ---
Spoke with Sidney [phone] from [place] Child Abuse Hotline due to positive tox screen [phone] She said she will try to visit while pt is inpatient at .Pt informed on pending visit.
As per MIK pt medically stable for dc to inpatient psych VS duel dx inpatient facility.
Spoke with patient she is in agreement with in patient stay. MD to complete 201 form (voluntary form).
Spoke with Susana at [facility] [phone] reviewed pts need. Susana said fax over clinical when medically stable.Faxed to [phone].\\
Will need auth with [employer].
Her parents are supportive.
Pt aware of plan above .
201 forms needs to be signed.
PLAN To Inpatient Dual therapy after auth
[2024-02-16 15:42] LABS: HCG, Serum Qualitative Screen Negative
[2024-02-16 15:58] LABS: HCG, Urine Qualitative Screen Negative
--- NOTE | 2024-02-16 18:30 | W.PN.HOSP.TC ---
Today's Communication/Plan
-
Placement Pending
Please see below
Assessment / Plan
Assessment / Plan
Physical Exam
General: No Apparent Distress; Negative Respiratory Distress
HEENT: Negative Oxygen
Cardio: S1 and S2. RRR.
Pulm: CTAB
Neuro: Awake, Alert, Oriented and No Motor Deficits
Psych: Calm

Intentional Overdose on Fentanyl
Suicidal Ideation
Major Depression
- Overdose took place at 9AM on 02/10/24.
- Further IV fluids was previously stopped.
- 1:1 removed by psych.
- Psych recommendation for inpatient psych admission
- I spoke with both patient's mother and patient inside patient's room, on February 15, 2024, they strongly requested Brain MRI inpatient/outpatient given family history of strokes and patient has been confused at times
- MRI Brain showed no acute abnormalities, except some chronic sinusitis
Chronic benzodiazepine Dependence
- Patient notes that she has been on chronic Xanax x many years.
- PDMP was queried and most recent Rx was from 04/2023 - though it did seem to be fairly regular prior to that.
- Low dose alprazolam PRN for now and follow for any evidence of withdrawal, etc.
Chronic Opioid Use Disorder
Complex Regional Pain Syndrome
- Patient apparently takes Suboxone 16mg/d.
- Patient was hesitant about taking buprenorphine 8 mg daily dose ordered in hospital. Concerned about precipitating opioid withdrawal.
- Patient and family requested Suboxone increase to 12 mg/d for gradual taper -- discussed on February 16, 2024 with psychiatry and suboxone dose increased to 12 mg/day
Leukocytosis - resolved
- Unclear etiology. ? Reactive due to overdose, etc.
- Follow for any fevers, focal symptoms, etc.
- Follow for improvement.
Scalp swelling
headache
- unsure how patient got it
- no ecchymosis on exam and not discernable on exam
- monitor
Rhabdomyolysis with elevated Creatine Kinase
-Recheck levels
Constipation
- laxatives ordered
DVT Prophylaxis: SCDs
Code Status: Full
Anticipated Discharge: 24 - 48 hours
Subjective/Interval History
-
Date of Service: February 16, 2024
Objective Data
-
Vital Signs:
Vital Signs
Temp Pulse Resp BP Pulse Ox
98 F 101 16 104/67 98
02/16/24 15:05 02/16/24 15:05 02/16/24 15:05 02/16/24 15:05 02/16/24 15:05
I&O
02/15/24 02/16/24 02/17/24
06:59 06:59 06:59
Intake Total 500 / 500 2100 / 2100 1200 / 1200
Balance 500 / 500 2100 / 2100 1200 / 1200
[2024-02-16] MEDS: MELATONIN 5 MG PO (21:46)
[2024-02-16] MEDS: DESYREL 50 MG PO (22:48)
[2024-02-17 03:28] VITALS: BP 127/74
[2024-02-17 06:47] LABS: Creatine Phosphokinase 88 U/L (30-135)
[2024-02-17 07:15] VITALS: BP 108/72; BP 115/64; BP 94/61; PULSE 146; PULSE 87; PULSE 92
[2024-02-17] MEDS: WELLBUTRIN XL (24 hour extended release) 150 MG PO (08:02)
[2024-02-17] MEDS: SUBUTEX 8 MG SL (08:02)
[2024-02-17] MEDS: SUBUTEX 4 MG SL (08:02)
[2024-02-17] MEDS: MIRALAX 17 GRAMS PO (08:03)
[2024-02-17] MEDS: SENOKOT 8.59999999999999964 MG PO ×2 (09:11→20:43)
[2024-02-17] MEDS: COLACE 100 MG PO ×2 (09:11→20:43)
--- NOTE | 2024-02-17 11:12 | W.PN.UPDATE ---
Update Note
Progress Note Update
patient seen chart reviewed. mrs perez is known to me. she appears to be better re depression since i saw her last week although there are sx still present which should be addressed. agree with psych hospitalization . she would like to go to
[facility] which is certainly ok w me. there was a bed a [facility] which i could also endorse. she did sign the 201 which is now in the chart. another option might be partial hospital if there is no in patient psych bed. continue w wellbutrin
currently.
[2024-02-17 11:45] VITALS: BP 107/68
[2024-02-17 15:40] VITALS: BP 97/63
--- NOTE | 2024-02-17 16:06 | CM ---
Addendum entered by Mellisa Jaramillo RN 02/17/24 16:30:
[facility] [phone] [facility] said she could accept her. Tax ID [id number] address [address] [address]
Needs Auth [employer] [phone].\\
Pt needs Covid test.
Informed pt of above she wants to speak with Dr Dill . TT request.
PLAN To [place] via ambulance after auth.
Original Note:
Sidney [phone] from [place] Child Abuse Hotline due to positive tox screen [phone] did visit patient in room .
As per pt medically stable for dc
Spoke with patient she is in agreement with in patient stay but in process of arranging [facility] pt said she heard bad things about [facility] and declined ot go there. Thiago aware.
MD to complete 201 form (voluntary form).
Renaldo Andujar called [phone] fax [phone] next out pt program to start March [address] Dill said too long to wait.
Santa called [phone] clinical fax to [phone].
Viktoria Eisenberg [phone] fax to [phone] [facility] called back can not accept patient.
Shwetha called no answer.
[facility] [phone] faxed clinical [phone] Nahomy said will check . will need Covid test and confirmation where she receives Subutex.
[facility] NO beds.
[2024-02-17 18:12] LABS: COVID-19 Antigen Negative (Negative)
--- NOTE | 2024-02-17 18:59 | W.PN.HOSP.TC ---
Today's Communication/Plan
-
Placement pending
Assessment / Plan
Assessment / Plan
Physical Exam
General: No Apparent Distress; Negative Respiratory Distress
HEENT: Negative Oxygen
Cardio: S1 and S2. RRR.
Pulm: CTAB
Neuro: Awake, Alert, Oriented and No Motor Deficits
Psych: Calm

Intentional Overdose on Fentanyl
Suicidal Ideation
Major Depression
- Overdose took place at 9AM on 02/10/24.
- Further IV fluids was previously stopped.
- 1:1 removed by psych.
- Psych recommendation for inpatient psych admission
- I spoke with both patient's mother and patient inside patient's room, on February 15, 2024, they strongly requested Brain MRI inpatient/outpatient given family history of strokes and patient has been confused at times
- MRI Brain showed no acute abnormalities, except some chronic sinusitis
Chronic benzodiazepine Dependence
- Patient notes that she has been on chronic Xanax x many years.
- PDMP was queried and most recent Rx was from 04/2023 - though it did seem to be fairly regular prior to that.
- Low dose alprazolam PRN for now and follow for any evidence of withdrawal, etc.
Chronic Opioid Use Disorder
Complex Regional Pain Syndrome
- Patient apparently takes Suboxone 16mg/d.
- Patient was hesitant about taking buprenorphine 8 mg daily dose ordered in hospital. Concerned about precipitating opioid withdrawal.
- Patient and family requested Suboxone increase to 12 mg/d for gradual taper -- discussed on February 16, 2024 with psychiatry and suboxone dose increased to 12 mg/day
Leukocytosis - resolved
- Unclear etiology. ? Reactive due to overdose, etc.
- Follow for any fevers, focal symptoms, etc.
- Follow for improvement.
Scalp swelling
headache
- unsure how patient got it
- no ecchymosis on exam and not discernable on exam
- monitor
Rhabdomyolysis with elevated Creatine Kinase - RESOLVED
Constipation
- laxatives ordered
DVT Prophylaxis: SCDs
Code Status: Full
Anticipated Discharge: 24 - 48 hours
Subjective/Interval History
-
Date of Service: February 17, 2024
Patient was seen and examined. She reported she wanted a bowel regimen. She denied any other new significant complaints.
Objective Data
-
Vital Signs:
Vital Signs
Temp Pulse Resp BP Pulse Ox
98.1 F 89 18 97/63 98
02/17/24 15:40 02/17/24 15:40 02/17/24 15:40 02/17/24 15:40 02/17/24 15:40
I&O
02/16/24 02/17/24 02/18/24
06:59 06:59 06:59
Intake Total 2099 1720 / 1720 1200 / 1200
Balance 2099 1720 / 1720 1200 / 1200
[2024-02-17 19:12] VITALS: BP 120/74
[2024-02-17] MEDS: MELATONIN 5 MG PO (20:43)
[2024-02-17] MEDS: DESYREL 50 MG PO (22:49)
[2024-02-17 23:05] VITALS: BP 111/68
[2024-02-18 03:49] VITALS: BP 100/66; BP 105/62; BP 106/65; PULSE 116; PULSE 79; PULSE 88
[2024-02-18 08:10] VITALS: BP 106/67; BP 99/58; BP 99/66; PULSE 112; PULSE 81
[2024-02-18] MEDS: SUBUTEX 8 MG SL (08:14)
[2024-02-18] MEDS: SENOKOT 8.59999999999999964 MG PO (08:14)
[2024-02-18] MEDS: SUBUTEX 4 MG SL (08:14)
[2024-02-18] MEDS: WELLBUTRIN XL (24 hour extended release) 150 MG PO (08:14)
[2024-02-18] MEDS: COLACE 100 MG PO (08:15)
[2024-02-18] MEDS: MIRALAX 17 GRAMS PO (08:15)
--- NOTE | 2024-02-18 10:25 | W.PN.HOSP.TC ---
Today's Communication/Plan
-
Discharge today
Assessment / Plan
Assessment / Plan
Physical Exam
General: No Apparent Distress; Negative Respiratory Distress
HEENT: Negative Oxygen
Cardio: S1 and S2. RRR.
Pulm: CTAB
Neuro: Awake, Alert, Oriented and No Motor Deficits
Psych: Calm

Intentional Overdose on Fentanyl
Suicidal Ideation
Major Depression
- Overdose took place at 9AM on 02/10/24.
- Further IV fluids was previously stopped.
- 1:1 removed by psych.
- Psych recommendation for inpatient psych admission
- I spoke with both patient's mother and patient inside patient's room, on February 15, 2024, they strongly requested Brain MRI inpatient/outpatient given family history of strokes and patient has been confused at times
- MRI Brain showed no acute abnormalities, except some chronic sinusitis
Chronic benzodiazepine Dependence
- Patient notes that she has been on chronic Xanax x many years.
- PDMP was queried and most recent Rx was from 04/2023 - though it did seem to be fairly regular prior to that.
- Low dose alprazolam PRN for now and follow for any evidence of withdrawal, etc.
Chronic Opioid Use Disorder
Complex Regional Pain Syndrome
- Patient apparently takes Suboxone 16mg/d.
- Patient was hesitant about taking buprenorphine 8 mg daily dose ordered in hospital. Concerned about precipitating opioid withdrawal.
- Patient and family requested Suboxone increase to 12 mg/d for gradual taper -- discussed on February 16, 2024 with psychiatry and suboxone dose increased to 12 mg/day
Leukocytosis - resolved
- Unclear etiology. ? Reactive due to overdose, etc.
- Follow for any fevers, focal symptoms, etc.
- Follow for improvement.
Scalp swelling
headache
- unsure how patient got it
- no ecchymosis on exam and not discernable on exam
- monitor
Rhabdomyolysis with elevated Creatine Kinase - RESOLVED
Constipation
- laxatives ordered
DVT Prophylaxis: SCDs
Code Status: Full
More than 30 minutes spent in discharge including
Final examination of the patient
Summarizing hospital stay
Instructions for continuing care to all relevant caregivers
Preparation of discharge records, prescriptions, and referral forms
Total time spent (in minutes): 37
Anticipated Discharge: Today
Subjective/Interval History
-
Date of Service: February 18, 2024
Patient was seen and examined. She still has not had a bowel movement. She otherwise denied any other new significant symptoms.
Objective Data
-
Vital Signs:
Vital Signs
Temp Pulse Resp BP Pulse Ox
97.8 F 81 16 99/58 100
02/18/24 08:10 02/18/24 08:10 02/18/24 08:10 02/18/24 08:10 02/18/24 08:10
I&O
02/17/24 02/18/24 02/19/24
06:59 06:59 06:59
Intake Total 1720 / 1720 1440 / 1440
Balance 1720 / 1720 1440 / 1440
--- NOTE | 2024-02-18 10:32 | W.PN.UPDATE ---
Update Note
Progress Note Update
patient seen chart reviewed. many texts with nursing and with case mgt over the past 24 hours as patient had many issues with hospitalization. mother present today. an effort made to impress upon her the seriousness of the overdose attempt and
the need for further rx. i may have considered [facility] but no beds available until march 03. she has agreed to go to [facility] at this point and this is being arranged by . filled out fmla leave for patient. no changes made in her psych meds. she
and mom feel that wellbutrin is really helping with depression. continues w suboxone. has been using trazodone prn for sleep. no xanax prn used since february 13. hopefully after [facility] she will be referred to [facility] .
--- NOTE | 2024-02-18 10:36 | CM ---
Spoke with pt her mom and Dr Dill.
stressed out pt therapy not appropriate and also [facility] could not start till March 03.
Pt declined [facility]
Spoke with Jerica at [place] [phone] pt approved to admit .
Covid request results negative.
Auth obtained called [facility] [phone] spoke wit Tomy Rendon Auth reference number [id number] from 02/18/24 to 02/25/24 NRD call Carla Abraham at [phone]. Above information given to Jerica at [place] .
Ambulance set up for 2 pm RN aware.
Pt has DR Jaida Andres prescribe her Subutex at home # [phone].
[place] protective services notified of dc.
PLAN To [place]
--- NOTE | 2024-02-18 10:52 | W.DS.TRANS ---
DC Summary - Framework Developer
-
Discharge Instructions:
Discharge Diagnosis/Procedures Intentional Overdose on Fentanyl
Suicidal Ideation
Major Depression
Chronic benzodiazepine Dependence
Chronic Opioid Use Disorder
Complex Regional Pain Syndrome
Leukocytosis
Scalp swelling
Headache
Rhabdomyolysis with elevated Creatine Kinase -
RESOLVED
Constipation
Diet As tolerated
Activity As tolerated
Driving Restrictions No driving
Instructions:
Stand-Alone Forms:
Changes to Home Medications: Yes
Discharge Medications:
DC Medications w/original date entered in [employer]
cyanocobalamin (vitamin B-12) 1,000 mcg tablet (Vitamin B-12) 1,000 mcg PO DAILY 02/11/24
multivitamin 1 tab PO DAILY 02/11/24
alprazolam 0.5 mg tablet 0.25 mg (1/2 x 0.5 mg) PO Q6HPRN PRN Anxiety #20 tabs 02/18/24
buprenorphine HCl 2 mg sublingual tablet 4 mg (2 x 2 mg) sublingual DAILY #20 tabs 02/18/24
buprenorphine HCl 8 mg sublingual tablet 8 mg sublingual DAILY #20 tabs 02/18/24
bupropion HCl 150 mg 24 hr tablet, extended release 150 mg PO DAILY #30 tabs 02/18/24
melatonin 5 mg tablet 5 mg PO HS #30 tabs 02/18/24
polyethylene glycol 3350 17 gram oral powder packet (HealthyLax) 17 g PO DAILY #100 ea 02/18/24
sennosides 8.6 mg-docusate sodium 50 mg tablet (Senokot-S) 1 tab-cap PO BID #60 tabs 02/18/24
trazodone 50 mg tablet 50 mg PO HSPRN PRN insomnia #30 tabs 02/18/24
Home Medication Changes
Alprazolam, Bupropion, Melatonin, Senokot-S and HealthyLax and prn Trazodone are new medications.
Buprenorphine adjusted.
Pending Results: No
Total time spent discharging patient (in min): 37
[2024-02-18 11:39] VITALS: BP 113/64
--- NOTE | 2024-02-18 14:05 | PTCARENOTE ---
Patient discharged to [facility] for inpatient rehab, [facility]. This RN removed patient's IV and telemetry pack, patient showered with assistance of tech prior to discharge. Patient's mother at bedside, patient gathered belongings
and dressed independently. Per leather case finisher Mellisa, no nurse to nurse report to give.
--- NOTE | 2024-02-25 10:17 | W.DCSUMMARY ---
Discharge Summary
Discharge Data
Date of Admission: 02/11/24
Date of Discharge: 02/18/24
Total time spent discharging patient (in min): 37
-
Pending Results: No
Hospital Course
38 y/o female with past medical history significant for depression / anxiety and chronic pain who presented to the emergency department for evaluation after intentional overdose of fentanyl and xanax, a suicide attempt. Patient was admitted, placed
on a 1:1 sitter and psychiatry was consulted. Buprenorphine/subutex was continued at a dose lower than her home dose but later increased at the recommendation of psychiatry (but still lower than her home dose). 1:1 sitter was later discontinued as
per psychiatry recommendations. Later, Wellbutrin was started. Patient and her family strongly requested MRI Brain given family history of strokes and reports that patient had been confused -- MRI was done and was unremarkable. Patient was soon
discharged to an inpatient psychiatric facility.
Discharge Plan
-
Patient Disposition: Psych Facility
Discharge Diagnosis/Procedures: Intentional Overdose on Fentanyl
Suicidal Ideation
Major Depression
Chronic benzodiazepine Dependence
Chronic Opioid Use Disorder
Complex Regional Pain Syndrome
Leukocytosis
Scalp swelling
Headache
Rhabdomyolysis with elevated Creatine Kinase - RESOLVED
Constipation
Condition: Fair
Diet: As tolerated
Activity: As tolerated
Driving Restrictions: No driving
Referrals:
NONE,* [Family Provider] -
Additional Discharge Medication Instructions: Alprazolam, Bupropion, Melatonin, Senokot-S and HealthyLax and prn Trazodone are new medications.
Buprenorphine adjusted.
Prescriptions:
New
trazodone 50 mg Tablet
50 mg PO HSPRN PRN (Reason: insomnia) Qty: 30 0RF
melatonin 5 mg Tablet
5 mg PO HS Qty: 30 0RF
polyethylene glycol 3350 [HealthyLax] 17 gram Powder In Packet
17 g PO DAILY Qty: 100 0RF
buprenorphine HCl 2 mg Tablet, Sublingual
4 mg sublingual DAILY Qty: 20 0RF
buprenorphine HCl 8 mg Tablet, Sublingual
8 mg sublingual DAILY Qty: 20 0RF
bupropion HCl 150 mg Tablet Extended Release 24 Hr
150 mg PO DAILY Qty: 30 0RF
alprazolam 0.5 mg Tablet
0.25 mg PO Q6HPRN PRN (Reason: Anxiety) Qty: 20 0RF
sennosides-docusate sodium [Senokot-S] 8.6-50 mg tablet
1 tab-cap PO BID Qty: 60 0RF
Continued
multivitamin Tablet
1 tab PO DAILY
cyanocobalamin (vitamin B-12) [Vitamin B-12] 1,000 mcg Tablet
1,000 mcg PO DAILY
Discontinued
buprenorphine-naloxone 8-2 mg film
1 film sublingual DAILY
Patient Comments:
02/11/2024: last filled 02/09/24, 60 film for 30 days from [id number]
Discharge Orders:
Discharge Patient (As Directed); Ordered 02/18/24
Ordered By: Ulises Lopez
Discharge Date and Time
Discharge Date/Time: 02/18/24 14:34
Print Language: BOLIVIAN
== END 2024-02-18 14:34 | DRG 918 ==
LOC: 2 NORTH 23:45
PROVIDERS: Hospitalist; ADMITTING PHYSICIAN Hospitalist; ATTENDING PHYSICIAN Hospitalist; CONSULT PHYSICIAN Psychiatry & Neurology Psychiatry; EMERGENCY PHYSICIAN Emergency Medicine
DX: T40.412A Poisoning by fentanyl or fentanyl analogs, intentional self-harm, initial encounter (principal); I47.10 Supraventricular tachycardia, unspecified; F33.9 Major depressive disorder, recurrent, unspecified; F11.20 Opioid dependence, uncomplicated; F13.20 Sedative, hypnotic or anxiolytic dependence, uncomplicated; G90.521 Complex regional pain syndrome I of right lower limb; M62.82 Rhabdomyolysis; T42.4X2A Poisoning by benzodiazepines, intentional self-harm, initial encounter; F90.9 Attention-deficit hyperactivity disorder, unspecified type; J32.9 Chronic sinusitis, unspecified; D72.829 Elevated white blood cell count, unspecified; F41.9 Anxiety disorder, unspecified; K59.00 Constipation, unspecified; F17.200 Nicotine dependence, unspecified, uncomplicated; R41.82 Altered mental status, unspecified; R26.81 Unsteadiness on feet; R51.9 Headache, unspecified; R11.10 Vomiting, unspecified; Y92.89 Other specified places as the place of occurrence of the external cause; Z11.52 Encounter for screening for COVID-19; Z91.410 Personal history of adult physical and sexual abuse; Z87.828 Personal history of other (healed) physical injury and trauma; Z82.3 Family history of stroke
CPT/HCPCS: 70450; 70551; 80048; 80053; 80143; 80179; 80306; 80307; 81025; 82077; 82550; 84703; 85025; 85027; 87811; 93005; 96361; 96374; 99285; 99406

== ENCOUNTER 2024-11-14 09:00 | Emergency (ER) | payer SELFPAY ==
[2024-11-14 09:02] VITALS: BP 117/85
[2024-11-14 09:46] LABS: HCG, Urine Qualitative Screen Negative
--- NOTE | 2024-11-14 09:59 | CM ---
Cm reviewed medical records. Crisis will evaluate patient and then update this CM for further assistance with retirement placement.
[2024-11-14 10:04] LABS: Amphetamines Positive (Negative); Barbiturates Negative (Negative); Benzodiazepines Negative (Negative); Buprenorphine Negative (Negative); Cocaine Negative (Negative); Marijuana Positive (Negative); Methadone Negative (Negative); Methamphetamines Negative (Negative); Opiates Negative (Negative); Phencyclidine Negative (Negative); Tricyclic Antidepressants Negative (Negative)
--- NOTE | 2024-11-14 10:10 | ED.GENMED ---
History of Present Illness
General
Chief Complaint: Crisis Evaluation
Source: patient and ambulance crew
Exam Limitations: none
Time Seen by Provider: 11/14/24 09:06
Nursing documentation reviewed up to this point in time: agreed with
History of Present Illness
History of Present Illness:
39-year-old female with history as noted presents to the ER seeking senior living, food, crisis consultation. Patient reports that she was at [facility]. She says that she was praying openly and that someone called the police on her. She says that the police
told her that she was trespassing and that she had to leave. She says she went to the store next-door due to the cold temperatures and the police came again apparently per their report she was yelling at cars in the parking lot on the way out of
[facility] and behaving somewhat erratically. She says that she asked the police to call EMS who brought her to the hospital. She says that physically she feels well although she is requesting food here. She denies being suicidal or homicidal. She
says she was yelling because 'I was exercising my first amendment rights.' She is asking that we help her find senior living. She does feel will be helpful to speak with crisis but does not feel she needs inpatient treatment.
Past History
Past History
ED Past Medical History: Arrthythmia (SVT s/p ablation), Psychiatric and Other (RSD)
ED Past Surgical History: None and Orthopedic
Social History
Tobacco: Smoker
Alcohol: None
Drug: Narcotics
Personal: Single
Living: with family
Employment: Employed
Review of Systems
Review of Systems
All Other Systems: ROS reviewed and negative except as documented in HPI and ROS
Constitutional: Denies fever
Respiratory: Denies trouble breathing
Cardiac: Denies chest pain
ABD/GI: Denies abdominal pain
: Denies flank pain
Musculoskeletal: Denies neck pain or back pain
Neurological: Denies headache
Psychiatric: Denies depression, suicidal or hallucinations
Phy Exam
Physical Exam
Physical Exam:
General: Well appearing and non-toxic, sitting in bed eating and drinking a Kelin iced tea
HEENT: Normocephalic, atraumatic, protecting airway
Neck: appears supple
CV: No evidence of cyanosis
Resp: No accessory muscle use
Abd: Non-distended
Extremities: No deformities
Neuro: Alert
Psych: Normal affect, normal mood, not responding to internal stimuli, appears to be future oriented
Skin: Intact
Scores
Heart Failure Risk
Heart Failure Risk Score: Not Applicable
Heart Score for Chest Pain Patients
STEMI patient?: Not applicable
Withdrawal Assessment of Alcohol
Withdrawal Assessment Completed?: Not applicable
Course
Orders/Labs/Results
Orders:
Orders
11/14/24 09:08
Test Result ONCE
11/14/24 09:28
COVID-19 Antigen Urgent
Source: Nasal Swab
Drug Screen, Urine [Urine Drug Abuse Screen] Urgent
Date Specimen was Collected: 11/14/24
Time Specimen was Collected: 09:25
Fentanyl, Urine Urgent
HCG, Urine Qualitative Screen Urgent
Date Specimen was Collected: 11/14/24
Time Specimen was Collected: 09:25
Influenza A+B Rapid Molecular Urgent
MAX Source: Nasal Swab
Specimen Description:
11/14/24 09:54
Case Management Consult ONCE
Case Management Consult: Other
Comment: homeless, needs senior living
Crisis Consult Routine
Reason for Consult: bizzare, delusions
11/14/24 11:26
Fluconazole [Diflucan] 150 mg PO NOW STA
Abnormal Lab Results
11/14/24
09:28
Ur Amphetamines Screen Positive H
(Negative)
U Marijuana (THC) Screen Positive H
(Negative)
Vital Signs
Initial and Last Documented VS:
Initial Vital Signs
Temp Pulse Resp BP Pulse Ox
36.6 C 112 16 117/85 98
11/14/24 09:02 11/14/24 09:02 11/14/24 09:02 11/14/24 09:02 11/14/24 09:02
Last Documented Vital Signs
Temp Pulse Resp BP Pulse Ox
36.6 C 112 16 117/85 98
11/14/24 09:02 11/14/24 09:02 11/14/24 09:02 11/14/24 09:02 11/14/24 09:02
MDM/Problems Addressed
Differential Diagnosis Includes:
Social work evaluation
MDM/Problems Addressed:
39-year-old female presents to the hospital after being kicked out of wall by police, yelling at cars in the parking lot; she has to be brought to the hospital. She is seeking help with senior living. She denies any suicidal or homicidal ideations, she
says she has chronic mental health issues and feels it would be helpful to speak with crisis but does not feel she needs inpatient treatment and I tend to agree based on my assessment here. Case discussed with crisis to evaluate and provide
resources. Case discussed with case preparer and liner to see if we can facilitate senior living. Provided food here. Continue to monitor.
Crisis and case management spoke with patient provided resources. Stable for discharge. Prior to discharge patient did say that she thinks she may be developing a yeast infection and requested treatment here for this. Provided a dose of Diflucan.
All questions answered.
*Pulse Oximetry
Patient hypoxic: no
*Critical Care Note
Total Time (30-74mins, 75-104mins- exclusive of procedures): Not Applicable
Data Reviewed
Source: patient and ambulance crew
Patient Management
Discussion with other providers: Other (Discussed with crisis staff, discussed with case preparer and liner)
ED Attending Note
-
Portions of this chart may have been created with voice recognition software.� Occasional wrong word or��sound alike� substitutions may have occurred due to the inherent limitations of voice recognition software.
Discharge Plan
Departure
Patient Disposition: Home (Routine Discharge)
Date of Disposition: 11/14/24
Time of Disposition: 11:28
Patient with high blood pressure during this ER visit?: No
Discharge Problem:
Encounter for medical screening examination, Housing instability after recent homelessness, Yeast infection
Instructions: Vulvovaginal yeast infection
Prescriptions:
No Action
multivitamin Tablet
1 tab PO DAILY
cyanocobalamin (vitamin B-12) [Vitamin B-12] 1,000 mcg Tablet
1,000 mcg PO DAILY
trazodone 50 mg Tablet
50 mg PO HSPRN PRN (Reason: insomnia) Qty: 30 0RF
melatonin 5 mg Tablet
5 mg PO HS Qty: 30 0RF
polyethylene glycol 3350 [HealthyLax] 17 gram Powder In Packet
17 g PO DAILY Qty: 100 0RF
buprenorphine HCl 2 mg Tablet, Sublingual
4 mg sublingual DAILY Qty: 20 0RF
buprenorphine HCl 8 mg Tablet, Sublingual
8 mg sublingual DAILY Qty: 20 0RF
bupropion HCl 150 mg Tablet Extended Release 24 Hr
150 mg PO DAILY Qty: 30 0RF
alprazolam 0.5 mg Tablet
0.25 mg PO Q6HPRN PRN (Reason: Anxiety) Qty: 20 0RF
sennosides-docusate sodium [Senokot-S] 8.6-50 mg tablet
1 tab-cap PO BID Qty: 60 0RF
Referrals:
NONE,* [Family Provider] -
Activity Restrictions/Additional Instructions:
Thank you for visiting the Emergency Department at [facility].
1. Please schedule a follow up appointment as directed. Call first thing tomorrow morning to make an appointment.
2. If indicated, please take your medications as instructed and indicated on discharge paperwork.
3. If any of your symptoms do not improve, or persist, or become more severe within 6-12 hours, please return to the emergency department for further care.
4. Please return to the emergency department if you develop a headache, neck pain/stiffness, fever greater than 100.4F, chest pain, shortness of breath, persistent nausea, vomiting, slurred speech, difficulty walking, numbness/tingling, weakness,
signs of infection or any other symptoms that are worrisome to you.
Please call [phone] if you have any questions.
Interventions
Interventions:
*Risk Screen - Suicide Last Done: 11/14/24 09:02
*Neglect/Abuse Screening Last Done: 11/14/24 09:02
Discharge Date and Time
Print Language: KHMER
[2024-11-14 10:14] LABS: COVID-19 Antigen Negative (Negative)
[2024-11-14 10:35] LABS: Fentanyl, Urine Negative (Negative)
--- NOTE | 2024-11-14 11:02 | CM ---
Addendum entered by Erlinda Sierra RN 11/14/24 11:48:
CM provided Lyft ride assistance to [facility] for [facility]
Addendum entered by Erlinda Sierra RN 11/14/24 11:21:
Patient is now agreeable to be dropped at [facility] for [facility] pickle processor.
Original Note:
CM reviewed medical records. Patient has been discharged from CRISIS. CM offered ride assistance to a [facility] [employer] halfway or another location. Patient stated that she wanted time to think about it and wants to make sure she is 'all set' before she
leaves.
Patient is requesting time to 'think about' what she wants to do as far as discharge. CM will return to discuss options.
[2024-11-14] MEDS: DIFLUCAN 150 MG PO (11:30)
[2024-11-14 11:44] VITALS: BP 124/74
== END 2024-11-14 11:30 | disposition home or self-care (01) ==
LOC: EMR 09:00
PROVIDERS: EMERGENCY PHYSICIAN Emergency Medicine
DX: B37.31 Acute candidiasis of vulva and vagina (principal); Z59.812 Housing instability, housed, homelessness in past 12 months; Z00.00 Encounter for general adult medical examination without abnormal findings; Z11.52 Encounter for screening for COVID-19; F17.200 Nicotine dependence, unspecified, uncomplicated
CPT/HCPCS: 99283; 80306; 80307; 81025; 87502; 87811

== ENCOUNTER 2024-11-14 23:26 | Emergency (ER) | payer SELFPAY ==
[2024-11-14 23:31] VITALS: BP 116/78
--- NOTE | 2024-11-15 02:02 | ED.GENMED ---
History of Present Illness
General
Chief Complaint: Heart Rate Problem
Source: patient
Time Seen by Provider: 11/15/24 01:32
History of Present Illness
History of Present Illness:
39-year-old female presents the emergency room complaint of palpitations. Patient states she has palpitations often but they were more serious today. Patient was seen here in the emergency room earlier today. During that visit she had a primarily
crisis evaluation. See that note for more details. Patient states she was brought to [facility] and no one met her there. Evidently the patient was taken to [facility] which was a pickup spot for a [facility] senior living. Evidently no one picked the
patient up there. Patient called 911 to be brought back here for the palpitations. Patient is quite confrontational to most of the staff accusing us of not wanting to take care of her or treat her properly.
Past History
Past History
ED Past Medical History: Arrthythmia (SVT s/p ablation), Psychiatric and Other (RSD)
ED Past Surgical History: None and Orthopedic
Social History
Tobacco: Smoker
Alcohol: None
Drug: Narcotics
Personal: Single
Living: with family
Employment: Employed
Phy Exam
Physical Exam
Physical Exam:
General: Awake, Alert, Oriented X3. Appears manic
Vitals: unremarkable
Head: Atraumatic
Eyes: Pupils equal, EOMI
Throat: Airway intact, no exudates
Neck: Trachea midline
Lungs: Clear and equal b/l
Heart: Regular rate, no murmurs
Abd: Soft, Nontender, No pulsatile mass
Neuro: Nonfocal
Skin: Warm, dry, no rash
Extremities: pulses equal b/l, no edema
Course
Orders/Labs/Results
Orders:
Orders
11/14/24 23:34
ECG [Electrocardiogram (*1)] Urgent
Reason for Study: Palpitations
11/14/24 23:35
EKG- Treatment ONCE
11/15/24 02:00
Cardiac Monitoring- Treatment ONCE
11/15/24 02:10
Basic Metabolic Panel Urgent
Complete Blood Count/With Diff Urgent
Magnesium Urgent
Phos [Phosphorus] Urgent
TSH Reflex To Free T4 Urgent
11/15/24 07:18
Case Management Consult ONCE
Case Management Consult: Discharge Planning
Comment: Pt is homeless and trying to access [facility] senior living
11/15/24 09:40
PSYCHIATRY CONSULT Urgent
Consulting Provider: Reid Ragsdale
Was physician already notified: Yes
Abnormal Lab Results
11/15/24
02:10
RBC 4.06 L 10^6/uL
(4.20-5.40)
MCH 31.8 H pg
(27.0-31.0)
Creatinine 0.5 L mg/dL
(0.6-1.0)
11/15/24 02:10
11/15/24 02:10
Vital Signs
Initial and Last Documented VS:
Initial Vital Signs
Temp Pulse Resp BP Pulse Ox
36.9 C 94 18 116/78 100
11/14/24 23:31 11/14/24 23:31 11/14/24 23:31 11/14/24 23:31 11/14/24 23:31
Last Documented Vital Signs
Temp Pulse Resp BP Pulse Ox
36.9 C 102 20 117/83 99
11/14/24 23:31 11/15/24 10:39 11/15/24 10:39 11/15/24 10:39 11/15/24 10:39
MDM/Problems Addressed
Differential Diagnosis Includes:
palpitations, anxiety,
MDM/Problems Addressed:
Patient complaining of palpitations. She returns to the emergency room after not being picked up at the meeting spot for a [facility] senior living. Labs are unremarkable. EKG shows no dysrhythmia. Patient was placed on the monitor but she stated it
was uncomfortable she pulled the leads off. Patient is cleared from a medical standpoint for discharge. Patient was seen by crisis earlier today and cleared.
*EKG
Interpreted by ED Provider?: Yes
Interpretation: normal
Heart Rate: 92
Rate: normal
Rhythm: sinus
[place]: normal axis
Interval: normal interval
QRS Pattern: normal QRS
Ischemia: no ischemia
*Wild Life Manager Interpretation
Rate: normal
Interpretation: normal
Rhythm: sinus
*Critical Care Note
Total Time (30-74mins, 75-104mins- exclusive of procedures): Not Applicable
ED Attending Note
-
Portions of this chart may have been created with voice recognition software.� Occasional wrong word or��sound alike� substitutions may have occurred due to the inherent limitations of voice recognition software.
Discharge Plan
Departure
Patient Disposition: Home (Routine Discharge)
Date of Disposition: 11/15/24
Time of Disposition: 13:21
Patient with high blood pressure during this ER visit?: No
Condition: Good
Discharge Problem:
Palpitations
Instructions: Palpitations (DC)
Prescriptions:
No Action
multivitamin Tablet
1 tab PO DAILY
cyanocobalamin (vitamin B-12) [Vitamin B-12] 1,000 mcg Tablet
1,000 mcg PO DAILY
trazodone 50 mg Tablet
50 mg PO HSPRN PRN (Reason: insomnia) Qty: 30 0RF
melatonin 5 mg Tablet
5 mg PO HS Qty: 30 0RF
polyethylene glycol 3350 [HealthyLax] 17 gram Powder In Packet
17 g PO DAILY Qty: 100 0RF
buprenorphine HCl 2 mg Tablet, Sublingual
4 mg sublingual DAILY Qty: 20 0RF
buprenorphine HCl 8 mg Tablet, Sublingual
8 mg sublingual DAILY Qty: 20 0RF
bupropion HCl 150 mg Tablet Extended Release 24 Hr
150 mg PO DAILY Qty: 30 0RF
alprazolam 0.5 mg Tablet
0.25 mg PO Q6HPRN PRN (Reason: Anxiety) Qty: 20 0RF
sennosides-docusate sodium [Senokot-S] 8.6-50 mg tablet
1 tab-cap PO BID Qty: 60 0RF
Referrals:
NONE,* [Family Provider] -
Interventions
Interventions:
*Risk Screen - Suicide Last Done: 11/15/24 02:12
*General Assessment Last Done: 11/15/24 02:12
*Neglect/Abuse Screening Last Done: 11/15/24 02:12
*ED COVID-19 Vaccine History Last Done: 11/15/24 02:12
ED- Cardiac Assessment Last Done: 11/15/24 01:47
ED-Psychological Assessment Last Done: 11/15/24 08:00
ED- Pulmonary Assessment Last Done: 11/15/24 01:47
Discharge Date and Time
Print Language: UPPER SORBIAN
[2024-11-15 02:25] LABS: % Basophils 0.1 % (0-2); % Eosinophils 0.2 % (0-6); % Immature Granulocytes 0.5 % (0-0.5); % Lymphocytes 23.7 % (20.5-51.1); % Neutrophils 69.5 % (42.2-75.2); Absolute Lymphocytes 2.1 10^3/uL (1.2-3.4); Absolute Monocytes 0.5 10^3/uL (0.1-0.6); Absolute Neutrophils 6.1 10^3/uL (1.4-6.5); Hematocrit 38.3 % (37.0-47.0); Hemoglobin 12.9 g/dL (12.0-16.0); Mean Corp Hgb Conc. 33.7 g/dL (33.0-37.0); Mean Corpuscular Hgb 31.8 pg (27.0-31.0); Mean Corpuscular Volume 94.3 fL (81.0-99.0); Mean Platelet Volume 8.8 fL (7.4-10.4); Nucleated Red Blood Cells % 0 %; Platelet Count 396 10^3/uL (130-400); Red Blood Cell Count 4.06 10^6/uL (4.20-5.40); White Blood Cell Count 8.8 10^3/uL (4.8-10.8)
[2024-11-15 02:44] LABS: Blood Urea Nitrogen 7 mg/dl (7-17); Carbon Dioxide 29 mmol/L (22-30); Chloride 103 mmol/L (98-107); Glucose 94 mg/dl (70-99); Magnesium 2.2 mg/dl (1.6-2.3); Potassium 3.7 mmol/L (3.5-5.1); Sodium 139 mmol/L (135-145); eGFR > 60.00
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
[2024-11-15 10:39] VITALS: BP 117/83
--- NOTE | 2024-11-15 15:12 | W.PN.UPDATE ---
Update Note
Progress Note Update
Pt seen, reviewed with Crisis staff. Pt was reportedly expressing HI recently- per family information to [employer] Of [employer]. Crisis assessed pt last pm and cleared her. Pt was given transport to be at the [facility] poultry picker at [facility]. Pt states
she waited there for 9 hours and nobody came. Pt seen sitting up in stretcher, alert, oriented, making eye contact. Affect angry, speech coherent, ranting about the 'system', cursing, very critical of DH. No overt signs of psychosis. Mood/affect
irritable, angry. Pt states she is angry that she was arrested, states they took her laptop and she lost her job. Pt reportedly has court tomorrow for a DUI charge. Pt has hx of MJ use and possibly synthetic agents. She c/o 'a lot has happened'
states 'the problem is the system'. Pt is annoyed about being interviewed.
Imp: Unspecified depressive d/o; likely personality d/o
Cannabis use, R/o other substance use
Rec: Outpatient treatment; no grounds for inpatient treatment. Reviewed with Crisis- reportedly family did not have grounds to file a 302 petition
== END 2024-11-15 13:44 | disposition home or self-care (01) ==
LOC: EMR 23:26
PROVIDERS: CONSULT PHYSICIAN Psychiatry & Neurology Psychiatry; EMERGENCY PHYSICIAN Emergency Medicine
DX: R00.2 Palpitations (principal); F32.A Depression, unspecified; F17.200 Nicotine dependence, unspecified, uncomplicated; Z59.00 Homelessness unspecified
CPT/HCPCS: 99284; 80048; 83735; 84100; 84443; 85025; 93005

== ENCOUNTER 2024-11-25 20:29 | Emergency (ER) | payer MEDICARE, SELFPAY ==
[2024-11-25 20:33] VITALS: BP 108/68
[2024-11-25 20:57] LABS: % Basophils 0.7 % (0-2); % Eosinophils 1.2 % (0-6); % Immature Granulocytes 0.3 % (0-0.5); % Monocytes 5.8 % (1.7-9.3); Absolute Basophils 0.1 10^3/uL (0-0.2); Absolute Eosinophils 0.1 10^3/uL (0-0.7); Absolute Lymphocytes 2.7 10^3/uL (1.2-3.4); Absolute Monocytes 0.7 10^3/uL (0.1-0.6); Absolute Neutrophils 7.7 10^3/uL (1.4-6.5); Hematocrit 35.4 % (37.0-47.0); Mean Corp Hgb Conc. 33.9 g/dL (33.0-37.0); Mean Corpuscular Hgb 31.7 pg (27.0-31.0); Mean Corpuscular Volume 93.7 fL (81.0-99.0); Mean Platelet Volume 8.6 fL (7.4-10.4); Nucleated Red Blood Cells % 0 %; Platelet Count 603 10^3/uL (130-400); Red Blood Cell Count 3.78 10^6/uL (4.20-5.40); White Blood Cell Count 11.3 10^3/uL (4.8-10.8)
[2024-11-25 21:04] LABS: HCG, Serum Qualitative Screen Negative
[2024-11-25 21:07] LABS: ALT (SGPT) < 10 U/L (0-35); AST (SGOT) 16 U/L (14-36); Albumin 3.9 g/dl (3.5-5.0); Alkaline Phosphatase 56 U/L (38-126); Blood Urea Nitrogen 11 mg/dl (7-17); Calcium 9.3 mg/dl (8.4-10.2); Carbon Dioxide 29 mmol/L (22-30); Chloride 104 mmol/L (98-107); Glucose 94 mg/dl (70-99); Potassium 4.2 mmol/L (3.5-5.1); Sodium 140 mmol/L (135-145); Total Bilirubin 0.1 mg/dl (0.2-1.3); Total Protein 6.5 g/dl (6.3-8.2); eGFR > 60.00
[2024-11-25 21:18] LABS: Troponin I < 0.012 ng/ml
--- NOTE | 2024-11-26 01:08 | ED.GENMED ---
History of Present Illness
General
Chief Complaint: Cardiac Symptoms
Source: patient and previous hospital records (Previous ED visits last week)
Exam Limitations: none
Time Seen by Provider: 11/26/24 00:55
Nursing documentation reviewed up to this point in time: agreed with
History of Present Illness
History of Present Illness:
This is a 39-year-old woman who has remote history of SVT, history of anxiety, prior history of substance abuse, has been clean and sober.
She had been suffering with homelessness but over the past week has returned home with her parents and brother.
She does note mild cough over the past week and her brother had similar URI symptoms.
Tonight, while at home in her room she suddenly smelled a foul odor that she states smelled like 'dirty gym socks' After this brief foul smell she developed some palpitations and shortness of breath. She also noted feeling warm, somewhat
flushed. She went outside and symptoms persisted with continued shortness of breath. She did return to the house and did not encounter similar smell but continued with intermittent palpitations feeling that her heart was skipping beats but also
intermittently racing. She states her father has history of atrial fibrillation and she was concerned for this.
Similar complaints of palpitations during ED visit November 15. Unremarkable EKG at that time. Normal TSH.
Past History
Past History
ED Past Medical History: Arrthythmia (SVT s/p ablation), Psychiatric and Other (RSD)
ED Past Surgical History: Cardiac (SVT ablation) and Orthopedic
Social History
Tobacco: Smoker
Alcohol: None
Drug: Former user and Marijuana
Personal: Single
Living: with family
Employment: Employed
Family History
Family History: Unable to obtain (Father with history of atrial fibrillation)
Phy Exam
Physical Exam
Physical Exam:
GENERAL: 39-year-old woman appears her stated age, bright and alert, pleasant, easily communicative and appears in no acute distress. No cough appreciated. Respirations are easy and nonlabored. Afebrile.
EYE: anicteric
NECK: Supple, nontender, no meningismus, no significant adenopathy.
ENT: posterior pharynx is clear, oral mucosa is moist. TM clear b/l, nares patent.
CARDIAC: Regular rate and rhythm. no murmur.
LUNGS: Clear breath sounds bilaterally, no acute respiratory distress, no wheezes/rales/rhonchi
ABDOMEN: Soft, nondistended, without focal tenderness, normoactive BS.
NEUROLOGICAL: Alert and oriented x3, no focal neuro deficits. Gait is steady.
SKIN: Warm and dry, normal color, skin intact. No rash.
MUSCULOSKELETAL: No C/C/E. peripheral pulses are full and equal b/l. No palpable tenderness.
PSYCH: Normal and appropriate interaction.
Course
Orders/Labs/Results
Orders:
Orders
11/25/24 20:30
Electrocardiogram (*1) Urgent
Reason for Study: Shortness of Breath
EKG- Treatment ONCE
Test Result ONCE
11/25/24 20:36
CR Chest - 2 Views Urgent
Comment:
Reason For Exam: SOB
11/25/24 20:40
Complete Blood Count/With Diff Urgent
Comprehensive Metabolic Panel Urgent
HCG, Serum Qualitative Screen Urgent
Troponin I Urgent
11/26/24 01:22
COVID-19 Antigen Urgent
Source: Nasal Swab
Influenza A+B Rapid Molecular Urgent
MAX Source: Nasal Swab
Specimen Description:
11/26/24 04:59
Case Management Consult ONCE
Case Management Consult: Discharge Planning
Requested By:: PT/FAMILY
Comment: pt is homeless requesting temporary housing
Abnormal Lab Results
11/25/24
20:40
WBC 11.3 H 10^3/uL
(4.8-10.8)
RBC 3.78 L 10^6/uL
(4.20-5.40)
Hct 35.4 L %
(37.0-47.0)
MCH 31.7 H pg
(27.0-31.0)
Plt Count 603 H 10^3/uL
(130-400)
Absolute Neuts (auto) 7.7 H 10^3/uL
(1.4-6.5)
Absolute Monos (auto) 0.7 H 10^3/uL
(0.1-0.6)
Total Bilirubin 0.1 L mg/dl
(0.2-1.3)
11/25/24 20:40
11/25/24 20:40
Vital Signs
Initial and Last Documented VS:
Initial Vital Signs
Temp Pulse Resp BP Pulse Ox
98.2 F 115 20 108/68 99
11/25/24 20:33 11/25/24 20:33 11/25/24 20:33 11/25/24 20:33 11/25/24 20:33
Last Documented Vital Signs
Temp Pulse Resp BP Pulse Ox
98 F 103 16 115/78 99
11/26/24 01:27 11/26/24 01:27 11/26/24 01:27 11/26/24 01:27 11/26/24 01:27
MDM/Problems Addressed
Differential Diagnosis Includes:
Concern for reactive bronchospasm, pneumonia, arrhythmia, anxiety attack.
No history of nor risk factors for thromboembolism.
EKG shows normal sinus rhythm with [address]-T wave abnormalities.
Labs are unremarkable save for mildly elevated white blood cell count of 11.
Chemistries are unremarkable. Troponin is negative.
Chest x-ray is unremarkable, clear lung washburn. Normal heart size.
Due to recent URI symptoms that overall appear to be improving, concern for potential COVID/flu thus will check rapid COVID and influenza.
I suspect PVCs as cause for palpitations.
PVCs appear rare in occurrence.
Recommend supportive measures, staying well-hydrated, avoid caffeinated beverages. Patient does drink tea. Instructed to switch to decaffeinated tea. Avoid alcohol, chocolate.
Prompt follow-up with PCP for recheck.
Chronic conditions affecting care: Arrhythmia and Psychiatric illness
Acute Exacerbation and/or Progression of Chronic Illness: Arrhythmia and Psychiatric illness
*Radiology
Radiology exam reviewed: preliminary read by ED provider (Chest x-ray is unremarkable. Clear lung washburn.)
*Pulse Oximetry
Patient hypoxic: no
*EKG
Interpreted by ED Provider?: Yes
Interpretation: normal
Comparison EKG: no changes ( Unchanged from previous November 14, 2024 save for 1 unifocal PVC is noted)
Rate: normal
Rhythm: sinus and PVC's
[place]: normal axis
Interval: normal interval
QRS Pattern: normal QRS
Ischemia: no ischemia
*Critical Care Note
Total Time (30-74mins, 75-104mins- exclusive of procedures): Not Applicable
Patient Management
Social determinants of health affecting care: Living situation and Poor social support
Update Note
Update Note:
Upon reevaluation, patient resting comfortably/sleeping.
No return of symptoms. No return of palpitations nor shortness of breath.
She now tells me that she had an argument with her family, an argument with her brother and she is not welcome back to her parents home. She is once again, acutely homeless.
Will consult case management to evaluate this a.m. for potential assistance with housing insecurity.
ED Attending Note
-
Portions of this chart may have been created with voice recognition software.� Occasional wrong word or��sound alike� substitutions may have occurred due to the inherent limitations of voice recognition software.
Discharge Plan
Departure
Patient Disposition: Home (Routine Discharge)
Date of Disposition: 11/26/24
Time of Disposition: 02:15
Patient with high blood pressure during this ER visit?: No
Condition: Good
Covid-19: Negative COVID-19
Discharge Problem:
Heart palpitations, Premature ventricular contraction on electrocardiogram
Instructions: Heart Palpitations
Prescriptions:
No Action
multivitamin Tablet
1 tab PO DAILY
cyanocobalamin (vitamin B-12) [Vitamin B-12] 1,000 mcg Tablet
1,000 mcg PO DAILY
trazodone 50 mg Tablet
50 mg PO HSPRN PRN (Reason: insomnia) Qty: 30 0RF
melatonin 5 mg Tablet
5 mg PO HS Qty: 30 0RF
polyethylene glycol 3350 [HealthyLax] 17 gram Powder In Packet
17 g PO DAILY Qty: 100 0RF
buprenorphine HCl 2 mg Tablet, Sublingual
4 mg sublingual DAILY Qty: 20 0RF
buprenorphine HCl 8 mg Tablet, Sublingual
8 mg sublingual DAILY Qty: 20 0RF
bupropion HCl 150 mg Tablet Extended Release 24 Hr
150 mg PO DAILY Qty: 30 0RF
alprazolam 0.5 mg Tablet
0.25 mg PO Q6HPRN PRN (Reason: Anxiety) Qty: 20 0RF
sennosides-docusate sodium [Senokot-S] 8.6-50 mg tablet
1 tab-cap PO BID Qty: 60 0RF
Referrals:
Obie Camargo MD [Family Provider] - Call in 1-3 days for appt
Interventions
Interventions:
*Risk Screen - Suicide Last Done: 11/26/24 01:27
*General Assessment Last Done: 11/25/24 20:33
*Neglect/Abuse Screening Last Done: 11/26/24 01:27
ED- Fall Risk Assessment Last Done: 11/26/24 01:27
*ED COVID-19 Vaccine History Last Done: 11/26/24 01:27
ED- Cardiac Assessment Last Done: 11/26/24 01:27
ED- Pulmonary Assessment Last Done: 11/26/24 04:22
Discharge Date and Time
Print Language: HONG KONGER
[2024-11-26 01:27] VITALS: BP 115/78; BMI 20.6
[2024-11-26 01:45] LABS: COVID-19 Antigen Negative (Negative)
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
== END 2024-11-26 10:54 | disposition home or self-care (01) ==
LOC: EMR 20:29
PROVIDERS: Student in an Organized Health Care Education/Training Program; EMERGENCY PHYSICIAN Emergency Medicine; FAMILY PHYSICIAN Internal Medicine
DX: R00.2 Palpitations (principal); I49.3 Ventricular premature depolarization; F17.200 Nicotine dependence, unspecified, uncomplicated; F41.9 Anxiety disorder, unspecified; Z59.00 Homelessness unspecified; Z86.79 Personal history of other diseases of the circulatory system
CPT/HCPCS: 99283; 71046; 80053; 84484; 84703; 85025; 87502; 87811; 93005

== ENCOUNTER 2024-11-26 21:20 | Emergency (ER) | payer MEDICARE, SELFPAY ==
[2024-11-26 21:48] VITALS: BP 113/76
[2024-11-26 22:29] LABS: HCG, Serum Qualitative Screen Negative
[2024-11-26 22:41] LABS: Troponin I < 0.012 ng/ml
[2024-11-27 00:38] VITALS: BP 92/60; BMI 19.9
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
--- NOTE | 2024-11-27 12:53 | CM ---
ED CM met with pt post dc in waiting room
This pt well known to this scientific writer
This CM met with pt day prior to provide vast homeless and community resources
Plan was established for to go to [facility] via [facility] and plan for follow up with housing [facility] and the HUB on Thu during business hours by pt
Pt noted she called and left messages for services but requesting add'l assistance with permanent fpc placement
Also ntoed she has since lost the paperwork provided to her with resources
Resources provided again with re-education on calling on Thu to establish herself with housing link and the hub
Pt transported via Lyft again to [facility] for [facility] pickup this evening
left for housing link with pt's correct cell# [phone]
== END 2024-11-27 02:15 | disposition home or self-care (01) ==
LOC: EMR 21:20
PROVIDERS: Student in an Organized Health Care Education/Training Program; EMERGENCY PHYSICIAN Student in an Organized Health Care Education/Training Program; FAMILY PHYSICIAN Internal Medicine
DX: R00.2 Palpitations (principal); I49.3 Ventricular premature depolarization; Z59.00 Homelessness unspecified
CPT/HCPCS: 99284; 84484; 84703; 93005

== ENCOUNTER 2024-12-02 23:12 | Emergency (ER) | payer MEDICARE, SELFPAY ==
[2024-12-02 23:17] VITALS: BP 128/87
[2024-12-02 23:19] VITALS: BP 128/87
[2024-12-03] VITALS: BP 96/73
--- NOTE | 2024-12-03 00:36 | ED.GENMED ---
History of Present Illness
General
Chief Complaint: Heart Rate Problem
Source: patient and records
Exam Limitations: none
Time Seen by Provider: 12/03/24 00:24
Nursing documentation reviewed up to this point in time: agreed with
History of Present Illness
History of Present Illness:
39-year-old female with history as noted, multiple ER visits (this is her sixth visit in the past month) presents to the emergency room for evaluation of palpitations; she also is requesting evaluation by crisis. Patient has been seen here many
times for palpitations most recently 11/27/2024. Has had extensive workup including multiple EKGs and lab work. She says that she continues to have occasional palpitations, no acute change today. When asked why she decided to come to the emergency
room despite having been evaluated for emergent pathology multiple times for the same complaint she states that she came here hoping for help 'on a higher level.' She is very vague when asked to clarify what this means. She says that she feels that
'the system' is targeting her. She says that she has been seen by case management but there are no shelters available to her and she feels that she is unsafe on the streets. She says that she has had some thoughts of 'not wanting to be here
anymore.' Denies homicidal ideation. She denies drug use to me. She is requesting crisis assessment.
Past History
Past History
ED Past Medical History: Arrthythmia (SVT s/p ablation), Psychiatric and Other (RSD)
ED Past Surgical History: Cardiac (SVT ablation) and Orthopedic
Social History
Tobacco: Smoker
Alcohol: None
Drug: Former user and Marijuana
Personal: Single
Living: with family
Employment: Employed
Family History
Family History: Unable to obtain (Father with history of atrial fibrillation)
Review of Systems
Review of Systems
All Other Systems: ROS reviewed and negative except as documented in HPI and ROS
Respiratory: Denies trouble breathing
Cardiac: Reports palpitations; Denies chest pain
ABD/GI: Denies abdominal pain, nausea or vomiting
Musculoskeletal: Denies neck pain
Neurological: Denies dizzy or headache
Phy Exam
Physical Exam
Physical Exam:
General: Awake, alert, oriented x3; resting comfortably in the bed nontoxic
Head: Normocephalic, atraumatic
Eyes: Conjunctiva normal
Throat: Airway intact, handling secretions
Neck: Trachea midline, supple without meningismus
Lungs: Clear to auscultation bilaterally, no wheezing, rales, rhonchi
Heart: Regular rate and rhythm, no murmurs, gallops, or rubs
Abd: Soft, non distended, nontender
Neuro: No gross deficits
Extremities: Warm and well-perfused with no edema
Psych: Anxious mood, bizarre affect
Scores
Heart Failure Risk
Heart Failure Risk Score: Not Applicable
Heart Score for Chest Pain Patients
STEMI patient?: Not applicable
Withdrawal Assessment of Alcohol
Withdrawal Assessment Completed?: Not applicable
Course
Orders/Labs/Results
Orders:
Orders
12/03/24 00:24
Electrocardiogram (*1) Urgent
Reason for Study: Palpitations
EKG- Treatment ONCE
12/03/24 00:34
Crisis Consult Routine
Reason for Consult: si
Vital Signs
Initial and Last Documented VS:
Initial Vital Signs
Temp Pulse Resp BP Pulse Ox
36.7 C 108 20 128/87 100
12/02/24 23:19 12/02/24 23:19 12/02/24 23:19 12/02/24 23:19 12/02/24 23:19
Last Documented Vital Signs
Temp Pulse Resp BP Pulse Ox
36.7 C 106 18 128/87 100
12/02/24 23:19 12/02/24 23:19 12/02/24 23:19 12/02/24 23:12/02/24 23:36
MDM/Problems Addressed
Differential Diagnosis Includes:
Palpitations: PACs/PVCs, A-fib, SVT, anxiety
MDM/Problems Addressed:
39-year-old female presents once again requesting evaluation for palpitations but further specifies that she is also seeking crisis assessment although she is vague about her specific complaints; she does in passing mention that she has thoughts of
'not wanting to be here' and that she feels she is being 'targeted.' She cites social issues as well saying that she is homeless and has not been able to get into shelters. Regarding palpitations: No acute change, had multiple recent lab
evaluations which were essentially unremarkable�in my judgment no indication for repeat lab work at this point in time. Her EKG shows sinus rhythm with normal QTc, no delta wave, no Brugada, no ectopy or any other acutely concerning findings. Low
suspicion for emergent cause for her palpitations and I think this can continue to be monitored on an outpatient basis. I see no clear indication for medical admission. I did speak to our crisis team to perform an assessment. At this point she
does not appear dangerous to herself or others--although she did vaguely mention not wanting to be here it sounds like this is more in relation to some paranoia that people are out to get her and general homelessness. She does not have a specific
plan.
Crisis performed their assessment�patient safety plan in place, they do not feel patient warrants inpatient treatment and in my judgment I agree with this assessment. She does not appear to be a threat to herself or others. Regarding her
palpitation she has been in sinus rhythm on telemetry for duration of ER observation. Her EKG shows no concerning changes. I think she is stable for discharge�provided referral to [facility] for follow-up. Plan to discharge.
*EKG
Interpreted by ED Provider?: Yes
Heart Rate: 97
Rate: normal
Rhythm: sinus
[place]: normal axis
Interval: normal interval
QRS Pattern: normal QRS
Ischemia: no ischemia
*Critical Care Note
Total Time (30-74mins, 75-104mins- exclusive of procedures): Not Applicable
Data Reviewed
Review of Other/Old Records Reveals: Labs and Records
Source: patient and records
Patient Management
Discussion with other providers: Other (Discussed with crisis team)
ED Attending Note
-
Portions of this chart may have been created with voice recognition software.� Occasional wrong word or��sound alike� substitutions may have occurred due to the inherent limitations of voice recognition software.
Discharge Plan
Departure
Patient Disposition: Home (Routine Discharge)
Date of Disposition: 12/03/24
Time of Disposition: 02:02
Patient with high blood pressure during this ER visit?: No
Discharge Problem:
Heart palpitations
Instructions: Palpitations (DC)
Prescriptions:
No Action
No Current Medications
0
Referrals:
[facility]Outside] - Follow up in 5-7 days ([facility])
Activity Restrictions/Additional Instructions:
Thank you for visiting the Emergency Department at [facility].
1. Please schedule a follow up appointment as directed. Call first thing tomorrow morning to make an appointment.
2. If indicated, please take your medications as instructed and indicated on discharge paperwork.
3. If any of your symptoms do not improve, or persist, or become more severe within 6-12 hours, please return to the emergency department for further care.
4. Please return to the emergency department if you develop a headache, neck pain/stiffness, fever greater than 100.4F, chest pain, shortness of breath, persistent nausea, vomiting, slurred speech, difficulty walking, numbness/tingling, weakness,
signs of infection or any other symptoms that are worrisome to you.
Please call [phone] if you have any questions.
Interventions
Interventions:
*Risk Screen - Suicide Last Done: 12/02/24 23:19
*General Assessment Last Done: 12/02/24 23:19
*Neglect/Abuse Screening Last Done: 12/02/24 23:19
*ED- Fall Risk Assessment Last Done: 12/02/24 23:19
ED- Cardiac Assessment Last Done: 12/02/24 23:36
ED- Pulmonary Assessment Last Done: 12/02/24 23:36
Discharge Date and Time
Print Language: LUX[place]
[2024-12-03 02:00] VITALS: BP 106/70
== END 2024-12-03 03:16 | disposition home or self-care (01) ==
LOC: EMR 23:12
PROVIDERS: EMERGENCY PHYSICIAN Emergency Medicine
DX: R00.2 Palpitations (principal); R45.851 Suicidal ideations; F17.200 Nicotine dependence, unspecified, uncomplicated; Z59.00 Homelessness unspecified
CPT/HCPCS: 99283; 93005

== ENCOUNTER 2024-12-16 22:52 | Emergency (ER) | payer MEDICARE, SELFPAY ==
[2024-12-16 22:58] VITALS: BP 113/95
[2024-12-16 23:00] VITALS: BP 117/97
--- NOTE | 2024-12-16 23:08 | ED.GENMED ---
History of Present Illness
General
Chief Complaint: Chest Pain
Source: patient
Time Seen by Provider: 12/16/24 22:54
History of Present Illness
History of Present Illness:
This patient is a 39-year-old female who arrives via EMS to the emergency department with complaints of right-sided chest pain, dyspnea, palpitations. She states that happened a few hours ago, all symptoms have resolved with the exception of mild
palpitations. Patient does also admit to smoking marijuana prior to presentation. She uses this regularly. She denies diaphoresis, nausea, vomiting, leg swelling, recent immobilization, recent trauma, estrogen use, history of DVT in her or family
members. She denies dizziness, lightheadedness, headache, or other complaints. Patient is unfortunately unhoused and has been for approximately a month. She is staying at a [facility]. She has had multiple ED visits with similar symptoms,
all with an unremarkable workup. She has been seen by crisis in the past and states to me that she was hospitalized for psychiatric symptoms for 6 days, discharged about a week ago. She explicitly confirms that she is not suicidal and does not
have homicidal ideations.
Past History
Past History
ED Past Medical History: Arrthythmia (SVT s/p ablation), Psychiatric and Other (RSD)
ED Past Surgical History: Cardiac (SVT ablation) and Orthopedic
Social History
Tobacco: Smoker
Alcohol: None
Drug: Former user and Marijuana
Personal: Single
Living: homeless
Employment: Not employed
Family History
Family History: Unable to obtain (Father with history of atrial fibrillation)
Phy Exam
Physical Exam
Physical Exam:
GENERAL: Alert , in no apparent distress
EYE: pupils equal and reactive
NECK: Supple, no significant adenopathy.
ENT: o/p clr, mm slightly dry
CARDIAC: Regular rate and rhythm, occasional extra beat noted to be a PVC on the monitor.
LUNGS: Clear breath sounds bilaterally, no acute respiratory distress, no wheezes/rales/rhonchi
ABDOMEN: Soft, without focal tenderness, no r/g, no cvat
NEUROLOGICAL: Alert and oriented, no focal neuro deficits
SKIN: Warm and dry, skin intact.
MUSCULOSKELETAL: No edema, well perfused.
PSYCH: Normal and appropriate interaction.
Scores
Heart Score for Chest Pain Patients
STEMI patient?: Not applicable
Course
Orders/Labs/Results
Orders:
Orders
12/16/24 23:11
0.9% Sodium Chloride 500 ml [Nss] 500 ml IV BOLUS
12/16/24 23:12
Electrocardiogram (*1) Urgent
Reason for Study: Palpitations
EKG- Treatment ONCE
12/16/24 23:16
Basic Metabolic Panel Urgent
12/17/24 00:30
12/16/24 23:16
Vital Signs
Initial and Last Documented VS:
Initial Vital Signs
Pulse Resp BP Pulse Ox
110 22 113/95 99
12/16/24 22:58 12/16/24 22:58 12/16/24 22:58 12/16/24 22:58
Last Documented Vital Signs
Pulse Resp BP Pulse Ox
113 15 117/97 98
12/17/24 00:30 12/17/24 00:30 12/16/24 23:00 12/17/24 00:30
*Critical Care Note
Total Time (30-74mins, 75-104mins- exclusive of procedures): Not Applicable
Update Note
Update Note:
Patient presents to the Emergency Department with _palpitation shortness of breath and chest pain
Number and Complexity of Problems Addressed at the Encounter
� Chronic conditions affecting care:
� Acute Exacerbation and/or Progression of Chronic Illness:
� Differential Diagnosis includes: But not limited to related to marijuana use, SVT, PVCs, PE,
Amount and/or Complexity of Data to be Reviewed and Analyzed
� I performed an independent evaluation of and my interpretation is:
EKG: read by me, normal sinus rhythm with PVCs, no acute ischemia
CT:
Xrays:
Laboratory Studies: Unremarkable
Other:
� Review of other/old records reveals:
� Clinical information was obtained by an independent historian:
� Prescriptions/Medications Considered but not given:
� Further testing considered but not performed:
Risk of Complications and/or Morbidity or Mortality of Patient Management
� Social determinants of health affecting care:
� Discussion with other providers (PCP, Hospitalists, Consultants, etc):
� Escalation of care including admission/observation vs risk of discharge considered: 12:45 AM reassessment of patient she was sleeping when I enter the room. Heart rate in the 10 8-1 10, sinus tach, no ectopy noted. Upon
awakening, patient became insistent that she stay here for the night describes shelters being closed. She states that her symptoms come and go, especially when she feels upset. Patient has had multiple workups for similar symptoms without specific
etiology noted. She refuses to allow us to do any further testing here. She understands that further testing is necessary to exclude diagnoses that may be contributing to her condition. Ultimately, however, I strongly suspect that her marijuana
use most recently today is contributing to her symptoms at least in part if not fully. There is a very strong odor of marijuana from her room. I offered case management to her, she states that she has met with them before and they are 'no help'.
I did give her a sandwich to eat and liquids to drink. Warm blankets provided. Patient is overall comfortable, in no distress, no retractions, tachypnea, respiratory rate is 16 pulse ox is 100%. I highly doubt acute emergent illness such as
PE/DVT, dissection, pneumothorax, etc. etc. Patient will be discharged and be in the waiting room overnight, strongly recommend case management and free clinic follow-up.
ED Attending Note
-
Portions of this chart may have been created with voice recognition software.� Occasional wrong word or��sound alike� substitutions may have occurred due to the inherent limitations of voice recognition software.
Discharge Plan
Departure
Patient Disposition: Home (Routine Discharge)
Date of Disposition: 12/17/24
Time of Disposition: 00:48
Patient with high blood pressure during this ER visit?: Yes
Condition: Good
Discharge Problem:
Heart palpitations
Instructions: Palpitations, BLOOD PRESSURE
Prescriptions:
No Action
No Current Medications
0
Referrals:
UNKNOWN - PT DOES,NOT KNOW [Family Provider] -
Activity Restrictions/Additional Instructions:
PLEASE AVOID ALL ILLICIT DRUG USE INCLUDING MARIJUANA. IF YOU DEVELOP PERSISTENT OR WORSENING CHEST PAIN, SHORTNESS OF BREATH, REPEATED VOMITING, OR OTHER WORRISOME SIGNS, PLEASE RETURN TO THE ER IMMEDIATELY.
Interventions
Interventions:
*Risk Screen - Suicide Last Done: 12/16/24 22:58
*General Assessment Last Done: 12/16/24 22:58
*Neglect/Abuse Screening Last Done: 12/16/24 22:58
*ED- Fall Risk Assessment Last Done: 12/16/24 22:58
*ED COVID-19 Vaccine History Last Done: 12/16/24 22:58
*Nursing Disposition Last Done: 12/17/24 01:51
ED- Cardiac Assessment Last Done: 12/16/24 23:49
Discharge Date and Time
Discharge Date/Time: 12/17/24 01:52
Print Language: KAZAKH
[2024-12-16 23:39] LABS: Blood Urea Nitrogen 8 mg/dl (7-17); Calcium 9.2 mg/dl (8.4-10.2); Carbon Dioxide 28 mmol/L (22-30); Chloride 103 mmol/L (98-107); Estimated Creatinine Clearance 123 ml/min; Glucose 87 mg/dl (70-99); Sodium 135 mmol/L (135-145); eGFR > 60.00
== END 2024-12-17 01:52 | disposition home or self-care (01) ==
LOC: EMR 22:52
PROVIDERS: EMERGENCY PHYSICIAN Emergency Medicine
DX: R07.89 Other chest pain (principal); F12.90 Cannabis use, unspecified, uncomplicated; F17.200 Nicotine dependence, unspecified, uncomplicated; Z59.01 Sheltered homelessness; R00.2 Palpitations
CPT/HCPCS: 99283; 80048; 93005

== ENCOUNTER 2024-12-27 20:19 | Emergency (ER) | payer MEDICARE, SELFPAY ==
[2024-12-27 20:22] VITALS: BP 104/74
[2024-12-28] LABS: % Basophils 0.7 % (0-2); % Eosinophils 2.3 % (0-6); % Immature Granulocytes 0.3 % (0-0.5); % Lymphocytes 24.9 % (20.5-51.1); % Neutrophils 65.8 % (42.2-75.2); Absolute Basophils 0.1 10^3/uL (0-0.2); Absolute Eosinophils 0.2 10^3/uL (0-0.7); Absolute Lymphocytes 2.5 10^3/uL (1.2-3.4); Absolute Monocytes 0.6 10^3/uL (0.1-0.6); Absolute Neutrophils 6.6 10^3/uL (1.4-6.5); Hemoglobin 10.3 g/dL (12.0-16.0); Mean Corp Hgb Conc. 34.3 g/dL (33.0-37.0); Mean Corpuscular Hgb 32.8 pg (27.0-31.0); Mean Corpuscular Volume 95.5 fL (81.0-99.0); Mean Platelet Volume 8.8 fL (7.4-10.4); Nucleated Red Blood Cells % 0 %; Platelet Count 426 10^3/uL (130-400); Red Blood Cell Count 3.14 10^6/uL (4.20-5.40); Red Cell Dist. Width 13.6 % (11.5-14.5); White Blood Cell Count 10.1 10^3/uL (4.8-10.8)
[2024-12-28 00:19] LABS: COVID-19 Antigen Negative (Negative)
[2024-12-28 00:22] LABS: HCG, Serum Qualitative Screen Negative
[2024-12-28 00:29] LABS: Blood Urea Nitrogen 10 mg/dl (7-17); Calcium 9.1 mg/dl (8.4-10.2); Carbon Dioxide 26 mmol/L (22-30); Chloride 108 mmol/L (98-107); Glucose 129 mg/dl (70-99); Sodium 139 mmol/L (135-145); eGFR > 60.00
[2024-12-28 00:32] LABS: Alcohol None Detected
[2024-12-28 00:47] LABS: Amphetamines Negative (Negative); Barbiturates Negative (Negative); Benzodiazepines Negative (Negative); Buprenorphine Negative (Negative); Cocaine Negative (Negative); Methadone Negative (Negative); Methamphetamines Negative (Negative); Opiates Negative (Negative); Phencyclidine Negative (Negative)
[2024-12-28 00:48] LABS: Marijuana Positive (Negative); Tricyclic Antidepressants Negative (Negative)
[2024-12-28 05:08] VITALS: BP 95/64
[2024-12-28 06:55] VITALS: BMI 23.5
--- NOTE | 2024-12-30 14:30 | ED.GENMED ---
History of Present Illness
General
Chief Complaint: Crisis Evaluation
Source: patient
Exam Limitations: none
Time Seen by Provider: 12/27/24 21:01
History of Present Illness
History of Present Illness:
Patient homeless. Depressed. Thoughts of hurting self. Complicated history. No plan or intent
Past History
Past History
ED Past Medical History: Arrthythmia (SVT s/p ablation), Psychiatric and Other (RSD)
ED Past Surgical History: Cardiac (SVT ablation) and Orthopedic
Social History
Tobacco: Smoker
Alcohol: None
Drug: Former user and Marijuana
Personal: Single
Living: homeless
Employment: Not employed
Family History
Family History: Unable to obtain (Father with history of atrial fibrillation)
Review of Systems
Review of Systems
All Other Systems: Not applicable
Respiratory: Reports no symptoms
Cardiac: Reports no symptoms
ABD/GI: Reports no symptoms
Phy Exam
Physical Exam
Physical Exam:
GENERAL: Alert and oriented in no apparent distress
EYE: Orbits normal.
NECK: Supple, no significant adenopathy.
ENT: Pharynx without erythema
CARDIAC: Regular rate and rhythm without any obvious murmurs.
LUNGS: Clear breath sounds,normal
ABDOMEN: Soft, without focal tenderness or distention
NEUROLOGICAL: Alert and oriented , grossly non-focal
SKIN: Warm and dry, no rash or lesion, no discoloration, skin intact.
MUSCULOSKELETAL: No edema,no deformity.Good color
PSYCH: Cooperative. Somewhat rambling speech
Course
Orders/Labs/Results
Orders:
Orders
12/27/24 21:01
Crisis Consult Urgent
Reason for Consult: Suicidal ideation
12/27/24 21:40
ED Special Safety Observation ONCE
Observation level: One to Two
12/27/24 22:47
Urine Drug Abuse Screen Urgent
Date Specimen was Collected: 12/28/24
Time Specimen was Collected: 00:10
12/27/24 23:30
Test Result ONCE
12/27/24 23:46
Alcohol Urgent
Basic Metabolic Panel Urgent
COVID-19 Antigen Urgent
Source: Nasal Swab
Complete Blood Count/With Diff Urgent
HCG, Serum Qualitative Screen Urgent
Comment: Notify provider if positive test present
Influenza A+B Rapid Molecular Urgent
MAX Source: Nasal Swab
Specimen Description:
Abnormal Lab Results
12/27/24 12/28/24
23:46 00:11
RBC 3.14 L 10^6/uL
(4.20-5.40)
Hgb 10.3 L g/dL
(12.0-16.0)
Hct 30.0 L %
(37.0-47.0)
MCH 32.8 H pg
(27.0-31.0)
Plt Count 426 H 10^3/uL
(130-400)
Absolute Neuts (auto) 6.6 H 10^3/uL
(1.4-6.5)
Chloride 108 H mmol/L
(98-107)
Glucose 129 H mg/dl
(70-99)
U Marijuana (THC) Screen Positive H
(Negative)
12/27/24 23:46
12/27/24 23:46
Vital Signs
Initial and Last Documented VS:
Initial Vital Signs
Temp Pulse Resp BP Pulse Ox
98 F 100 18 104/74 100
12/27/24 20:22 12/27/24 20:22 12/27/24 20:22 12/27/24 20:22 12/27/24 20:22
Last Documented Vital Signs
Temp Pulse Resp BP Pulse Ox
98 F 71 17 95/64 98
12/27/24 20:22 12/28/24 05:08 12/28/24 05:08 12/28/24 05:08 12/28/24 05:08
MDM/Problems Addressed
Differential Diagnosis Includes:
Medically stable and medically cleared.
*Critical Care Note
Total Time (30-74mins, 75-104mins- exclusive of procedures): Not Applicable
ED Attending Note
-
Portions of this chart may have been created with voice recognition software.� Occasional wrong word or��sound alike� substitutions may have occurred due to the inherent limitations of voice recognition software.
Discharge Plan
Departure
Patient Disposition: Psych Facility
Date of Disposition: 12/27/24
Time of Disposition: 22:51
Discharge Problem:
Depression/ADL issues
Prescriptions:
No Action
No Current Medications
0
Referrals:
Keith Gonzalez MD [Family Provider] -
Interventions
Interventions:
*Risk Screen - Suicide Last Done: 12/27/24 20:22
*General Assessment Last Done: 12/28/24 01:08
*Neglect/Abuse Screening Last Done: 12/27/24 20:22
*ED- Fall Risk Assessment Last Done: 12/28/24 01:08
*ED COVID-19 Vaccine History Last Done: 12/28/24 01:08
*Nursing Disposition Last Done: 12/28/24 12:03
ED-Psychological Assessment Last Done: 12/27/24 21:36
Discharge Date and Time
Discharge Date/Time: 12/28/24 12:04
Print Language: CZECH
== END 2024-12-28 12:04 ==
LOC: EMR 20:19
PROVIDERS: EMERGENCY PHYSICIAN Emergency Medicine; FAMILY PHYSICIAN Internal Medicine
DX: F32.A Depression, unspecified (principal); Z73.6 Limitation of activities due to disability; Z59.00 Homelessness unspecified; F17.200 Nicotine dependence, unspecified, uncomplicated; Z11.52 Encounter for screening for COVID-19
CPT/HCPCS: 99285; 80048; 80306; 82077; 84703; 85025; 87502; 87811